=== PATIENT | male | born 1955 | race Caucasian/White ===

== ENCOUNTER 2019-02-08 12:01 | Day surgery (SDC) | payer OTHER, MEDICAID, SELFPAY ==
[2019-02-07 07:17] VITALS: BMI 23.3
[2019-02-08] VITALS (9 sets, daily range): BP systolic 129–157; BP diastolic 87–104; PULSE 83–95; RESP 12–21; TEMP 36.2–36.6; O2SAT 92–96; BMI 23.3
--- NOTE | 2019-02-08 13:04 | PM.PREOP ---
Pre-operative Note Interval Note History & Physical reviewed/Exam performed by Physician: Yes Changes to H&P: No
[2019-02-08] MEDS: LACTATED RINGERS 1,000 ML 42 ML IV ×2 (13:08→15:33)
[2019-02-08] MEDS: CEFAZOLIN 2 GM/100 ML FROZ.PIGGY IV (14:38)
--- NOTE | 2019-02-08 14:56 | SUR.OPER ---
Supine on padded OR bed, head on pillow, arms secured on padded arm boards at <90 degrees abduction, legs uncrossed, safety belt at thigh, tape over blanket over lower legs.
[2019-02-08] MEDS: BUPIVACAINE 0.25% (PF) VIAL 30 ML INJ (15:02)
--- NOTE | 2019-02-08 15:45 | PM.OP.1 ---
Operative Date/Time/Diagnoses Date of procedure: 02/08/19 Time of procedure: 15:45 Pre-op diagnosis: Umbilical hernia Post-op diagnosis: same Procedure & Clinicians Procedure: Open umbilical hernia repair Same procedure as scheduled: Yes Indications: This is a 63-year-old male with a symptomatic umbilical hernia presents for elective repair. Surgeon: Yonathan Nova Click Yes if Unassisted: Yes Anesthesia Type: General Operative Notes Findings: Fat containing umbilical hernia Specimen(s): none sent Estimated Blood Loss (mL): 10 Procedure in detail: Patient was brought to the operating room placed supine on the table. Bilateral lower extremity compression devices were applied. General anesthesia was inducedand they were intubated with an endotracheal tube. They received 2 g of Ancef prior to skin incision. They were prepped and draped in sterile fashion. A time-out was performed ensure the correct patient procedure necessary equipment within the operating room. A curvilinear incision was made inferior to the umbilicus. The subcutaneous tissues were divided. The umbilical hernia was identified and was dissected off the umbilicus and circumferentially. The umbilical hernia sac contained omentum and was not opened. The sac was reduced into the abdomen and the fascia was cleared from above and below circumferentially in order to accommodate the mesh. The fascial defect of 2 cm was closed primarily with figure of 8 PDS suture. A Pro Loop polypropylene mesh was inserted above the fascial defect. It was secured to the fascia using 0 Prolene suture in interrupted fashion. The subcutaneous tissues were reapproximated using 3 0 Vicryl skin closed with 4 0 Monocryl upon by the application of Dermabond and Steri-Strips. Sponge instrument count at the end of the operation was correct. Patient tolerated procedure well was extubated and transferred to postoperative care unit in stable condition. Complications: none Post-operative Condition: stable Disposition: same day surgery
[2019-02-08] MEDS: HYDROMORPHONE 2 MG INJ IV ×4 (15:49→16:06)
[2019-02-08] MEDS: OXYCODONE/ACETAMINOPHEN 5/325 TABLET 1 TAB PO (16:14)
--- NOTE | 2019-02-08 16:19 | SUR.PHASEI ---
Patient A/O x4. Abdomen site clean and dry. Patient tolerating po. Denies nausea. Medicated for c/o pain. Patient states pain is getting more tolerable.
== END 2019-02-08 17:15 | disposition home or self-care (01) ==
PROVIDERS: Family Provider Family Medicine; PCP Family Medicine; Visit Provider Surgery
PROC: (CPT 49585; principal; 2019-02-08 13:15)
DX: K42.9 Umbilical hernia without obstruction or gangrene (principal); J44.9 Chronic obstructive pulmonary disease, unspecified
CPT/HCPCS: 49585; C1781; J0690; J1100; J1170; J2405; J2704; J3010

== ENCOUNTER 2019-05-11 14:56 | Emergency (ER) | payer OTHER, MEDICAID, SELFPAY ==
[2019-05-11 15:01] VITALS: BP 108/72; PULSE 99; RESP 18; TEMP 36.7; O2SAT 99; BMI 24.1
--- NOTE | 2019-05-11 15:28 | DI.RAD.S_ITS ---
PROCEDURE: XR CHEST 1V INDICATIONS: sepsis evaluation TECHNIQUE: One view of the chest was acquired. COMPARISON: [facility], , CHEST 1 VIEW, 07/15/2010, 1:03. [facility], , CHEST 2 VIEW, 06/20/2010, 1:05. FINDINGS: Surgical changes and devices: None. Lungs and pleura: Lungs are unchanged considering reduced inspiratory volume with some mild interstitial prominence previously present. No pleural effusions or pneumothorax. Mediastinum: Mediastinal contours appear normal. Heart size is normal. Bones and chest wall: No suspicious bony lesions. Overlying soft tissues appear unremarkable. IMPRESSION: Mild interstitial prominence within the lung parenchyma, previously present, reduced inspiratory volume accentuates this appearance. No pneumonia found. Dictated by: Neville Chaudhry M.D. on 05/11/2019 at 17:23 Approved by: Neville Chaudhry M.D. on 05/11/2019 at 17:23
[2019-05-11 15:42] LABS: Add Manual Diff / Slide Review NO; Basophils Absolute Auto 100 /uL (0-100); Basophils Percent Auto 0.7 % (0-2); Eosinophils Absolute Auto 400 /uL (0-450); Eosinophils Percent Auto 5.6 % (2-4); Hematocrit 39.9 % (41-53); Hemoglobin 13.4 g/dL (13.5-17.5); Lymphocytes Absolute Auto 2100 /uL (1100-4500); Mean Corpuscular HGB Conc 33.5 % (30-36); Mean Corpuscular Hemoglobin 31.3 PG (26-34); Mean Corpuscular Volume 93.4 fL (80-100); Monocytes Absolute Auto 800 /uL (0-900); Monocytes Percent Auto 10.8 % (3-14); Neutrophils Absolute Auto 4400 /uL (1500-7000); Neutrophils Percent Auto 55.9 % (50-75); Platelet Count 217 X10^3/uL (150-400); Red Blood Cell Count 4.27 X10^6/uL (4.5-5.9); Red Cell Distribution Width 14.1 % (11.6-14.8); White Blood Cell Count 7.8 X10^3/uL (4.5-11.0)
[2019-05-11 15:51] LABS: Alanine Aminotransferase 23 IU/L (<50); Albumin 3.5 g/dL (3.5-5.0); Albumin Globulin Ratio 1.3 (1.0-2.8); Alkaline Phosphatase 73 U/L (38-126); Aspartate Aminotransferase 28 IU/L (17-59); BUN Creatinine Ratio 21.3 (6-22); Bilirubin Total 0.2 mg/dL (0.2-1.3); Blood Urea Nitrogen 17 mg/dL (9-20); Calcium 9.1 mg/dL (8.4-10.2); Carbon Dioxide 29 mmol/L (22-32); Chloride 108 mmol/L (98-107); Estimated Glomerular Filt Rate > 60.0 mL/min (>60); Globulin 2.8 g/dL (1.7-4.1); Glucose 144 mg/dL (80-110); HEMOLYSIS < 15 (0-50); Sodium 142 mmol/L (137-145); Total Protein 6.3 g/dL (6.3-8.2)
[2019-05-11 15:52] LABS: Lactate (Lactic Acid) 2.3 mmol/L (0.7-2.1)
[2019-05-11 16:15] LABS: Procalcitonin < 0.05 ng/mL (<0.5)
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
--- NOTE | 2019-05-11 16:53 | DI.RAD.S_ITS ---
PROCEDURE: XR HAND RT MIN 3V INDICATIONS: s/p foreign body removal TECHNIQUE: 3 views of the hand(s) acquired. COMPARISON: [facility], , HAND 3V LEFT, 12/26/2006, 13:06. FINDINGS: Bones: No fractures or dislocations. Carpal bones are normally aligned. No suspicious bony lesions. Soft tissues: No suspicious soft tissue calcifications. IMPRESSION: Mild arthritic change, no foreign body seen. Dictated by: Neville Chaudhry M.D. on 05/11/2019 at 17:23 Approved by: Neville Chaudhry M.D. on 05/11/2019 at 17:24
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
[2019-05-11 17:00] VITALS: BP 139/68; PULSE 91; RESP 20; O2SAT 96
[2019-05-11] MEDS: SODIUM CHLORIDE 0.9% 1,000 ML 200 ML IV (17:22)
[2019-05-11] MEDS: LIDOCAINE 1% W/EPI 1 ML SUBCUT (17:22)
[2019-05-11 17:37] LABS: Reflexed Lactate in 2 Hours Y
== END 2019-05-11 17:42 | disposition home or self-care (01) ==
PROVIDERS: Emergency Provider Emergency Medicine; Family Provider Family Medicine; PCP Family Medicine
DX: S60.551A Superficial foreign body of right hand, initial encounter (principal); W34.010A Accidental discharge of airgun, initial encounter
CPT/HCPCS: 10120; 36415; 71045; 73130; 80053; 83605; 84145; 85025; 87040; 99284; 99285

== ENCOUNTER → 2019-06-29 09:12 | Outpatient (CLI) | payer OTHER, MEDICAID, SELFPAY ==
[2019-06-29 09:50] LABS: Blood Urea Nitrogen 30 mg/dL (9-20); Estimated Glomerular Filt Rate > 60.0 mL/min (>60)
--- NOTE | 2019-06-29 09:58 | DI.CT.S_ITS ---
PROCEDURE: CT UE RT W CON INDICATIONS: Cutaneous abscess of right hand TECHNIQUE: After the administration of intravenous contrast, 3 mm axial sections acquired of the right hand, with coronal and sagittal reformats. COMPARISON: None. FINDINGS: Image quality: Excellent. Bones: No fracture or dislocation. Soft tissues: No radiopaque foreign bodies. There is focal tissue edema in the volar aspect of the the base of the third finger, measuring 1.0 x 1.4 x 1.7 cm. There is focal thickening the flexor tendon deep to the area. There is subtle peripheral enhancement along the flexor tendon. There is no drainable fluid collection. IMPRESSION: Focal edema and soft tissue thickening around the flexor tendon at the base of the third finger. There is subtle enhancement along the extensor tendon. No radiopaque foreign body. No drainable fluid collection. If clinical symptoms persist, MRI may be helpful for further evaluation. Dictated by: Katheryn Hatfield M.D. on 06/29/2019 at 10:26 Approved by: Katheryn Hatfield M.D. on 06/29/2019 at 10:58
== END ==
PROVIDERS: Family Provider Family Medicine; PCP Family Medicine; Referring Provider Family Medicine; Visit Provider Family Medicine
DX: L02.511 Cutaneous abscess of right hand (principal)
CPT/HCPCS: 36415; 73201; 82565; 84520; Q9967

== ENCOUNTER → 2019-07-12 15:13 | Outpatient (CLI) | payer OTHER, MEDICAID, SELFPAY ==
--- NOTE | 2019-07-12 | DI.MRI.S_ITS ---
PROCEDURE: MR HAND RT WO/W CON INDICATIONS: Cutaneous abscess of right hand TECHNIQUE: Noncontrast coronal T1 spin echo and STIR, sagittal T1 spin echo with fat saturation and STIR, axial T1 spin echo and T2 fast spin echo with fat saturation. After the administration of contrast, axial/sagittal/coronal T1 spin echo with fat saturation through the right hand. COMPARISON: [facility], CR, XR HAND RT MIN 3V, 05/11/2019, 17:00. [facility], CT, CT UE RT W CON, 06/29/2019, 9:53. FINDINGS: Image quality: Motion degraded examination. No discrete fracture or focal osseous destruction however there are several areas of sub-5 mm marrow signal changes present in the capitate, lunate and triquetral seen on orthogonal T1-weighted pulse sequences although questionable overlying cortical loss therefore technically indeterminate for erosions by strict criteria at this time. There is minimal, subtle associated enhancement. bright-dark signal focus is noted, slightly distal to the level of the third MCP joint along the volar aspect, for example image 20/18 raising possibility of punctate metallic foreign body versus postsurgical changes. Please correlate clinically Enhancing ring finger flexor tenosynovitis is noted. No discrete abscess is identified although there is mild adjacent subcutaneous edema. Remaining flexor tendons within normal limits. Mild partially visualized extensor digitorum tenosynovitis Distal radioulnar joint effusion. IMPRESSION: Nonspecific middle finger flexor tenosynovitis, which could be due to infectious etiologies versus inflammatory arthritis. Please correlate with laboratory data. Subtle marrow signal changes present within the carpus raising a possibility of early erosions however these are technically nonspecific by strict criteria. Bright-dark signal change along the palmar aspect of the middle finger at the level of the MCP joint, possibly postsurgical change versus foreign body which is radiographically occult on the comparison study. Please correlate clinically No discrete abscess Dictated by: Estevan Russo M.D. on 07/13/2019 at 8:57 Approved by: Estevan Russo M.D. on 07/13/2019 at 9:13
== END ==
PROVIDERS: Family Provider Family Medicine; PCP Family Medicine; Referring Provider Family Medicine; Visit Provider Family Medicine
DX: L02.511 Cutaneous abscess of right hand (principal); M65.841 Other synovitis and tenosynovitis, right hand; M25.431 Effusion, right wrist
CPT/HCPCS: 73220; A9579

== ENCOUNTER 2019-12-30 17:27 | Observation (INO) | payer OTHER, MEDICAID, SELFPAY ==
--- NOTE | 2019-12-30 | DI.ECHO.S_ITS ---
[facility]---------+ [facility] +---------+ : : [address] : [place] : : : : [id number] : : : : Phone: [phone]+ Echocardiogram Report + + :Name: MARLINE BRYSON Study Date: 01/01/2020 Height: 71 in : :[facility] Weight: 181 lb : : Gender: Male BSA: 2.0 m2 : :: 1955 Age: 64 yrs BP: 148/102 mmHg: :Reason For Study: CVA, AFIB : : Performed By: Vadim Rajput : :Referring: RD ALCANTARA : + + Interpretation Summary Normal sinus rhythm. Normal LV size, wall thickness; normal wall motion and LV systolic function. EF is 60-65%. Normal chamber sizes. No significant valvular abnormalities. No evidence of PFO based on bubble study. No prior study available for comparison. Procedure: A two-dimensional transthoracic echocardiogram with color flow and Doppler was performed. The study quality was technically adequate. There is no prior echocardiogram noted for this patient. A saline contrast injection was performed to assess for cardiac shunting. The suprasternal notch views were difficult to obtain and are suboptimal in quality. The patient was in normal sinus rhythm during the exam. Left Ventricle: The left ventricle is normal in size. There is normal left ventricular wall thickness. The ejection fraction is estimated to be 60-65%. There are no focal wall motion abnormalities. Right Ventricle: The right ventricle is normal in size and function. Atria: Both atria are normal in size. Injection of contrast documented no interatrial shunt. Mitral Valve: The mitral valve is normal in structure and function. There is trace mitral regurgitation. Aortic Valve: The aortic valve is trileaflet. The aortic valve opens well. No aortic regurgitation is present. Tricuspid Valve: The tricuspid valve is normal in structure and function. No tricuspid regurgitation. Pulmonary artery pressures cannot be estimated because of the lack of a measurable TR jet velocity. Pulmonic Valve: The pulmonic valve is not well visualized. There is trace pulmonic regurgitation. Great Vessels: The aortic root is normal size. The ascending aorta is at the upper limits of normal in size. The pulmonary artery is normal size. The IVC is of normal diameter and collapses greater than 50% with a sniff. This suggests a low right atrial pressure of 3 mm Hg. Pericardium/ Pleura There is no pericardial effusion. There is no pleural effusion. MMode/2D Measurements & Calculations LVIDd: 4.6 cm LVOT diam: 2.2 cm LVIDs: 3.2 cm Ao root diam: 3.5 cm FS: 30.0 % asc Aorta Diam: 3.5 cm EPSS: 1.1 cm IVSd: 1.1 cm LVPWd: 1.2 cm LV guerin. diameter/BSA (cm/m^2): 2.3 LV sys. diameter/BSA (cm/m^2): 1.6 LA dimension: 3.4 cm RA long axis: 3.9 cm LA A2 area: 19.6 cm2 RA area: 15.1 cm2 LA A4 area: 17.8 cm2 RA vol: 50.3 ml LA length (vol): 4.8 cm RA : 24.9 ml/m2 LA vol: 61.6 ml IVC diam: 1.2 cm LA vol index: 30.5 ml/m2 Doppler Measurements & Calculations Ao V2 max: 113.1 cm/sec LVOT Max Matt: 89.1 cm/sec Ao V2 mean: 77.8 cm/sec LV V1 max P.2 mmHg Ao max P.1 mmHg LV V1 VTI: 16.1 cm Ao mean P.6 mmHg ALLISON(I,D): 3.6 cm2 Ao V2 VTI: 17.5 cm ALLISON(V,D): 3.1 cm2 sev ratio: 0.92 ALLISON indexed to BSA (cm^2/m^2): 1.8 MV E max matt: 42.0 cm/sec PA V2 max: 88.6 cm/sec MV A max matt: 93.2 cm/sec PA V2 mean: 69.1 cm/sec MV E/A: 0.45 PA mean P.0 mmHg Med Peak E' Matt: 4.3 cm/sec PA pr(Accel): 66.2 mmHg E/E' med: 9.7 Lat Peak E' Matt: 3.1 cm/sec E/E' lat: 13.8 E/e' average: 11.7 MV dec time: 0.12 sec SV(LVOT): 63.1 ml Electronically signed by: Lupe Harrison M.D. on Reading Physician:01/01/2020 05:54 PM
--- NOTE | 2019-12-30 17:36 | ED.NEUROSD ---
HPI - Neuro Symptoms/Deficit General Chief Complaint: Neuro Symptoms/Deficit Stated Complaint: stroke sx Time Seen by Provider: 12/30/19 17:28 Source: patient and family Mode of arrival: Ambulatory Limitations: no limitations History of Present Illness HPI Narrative: 64-year-old male daily smoker with history of hyperlipidemia and hypertension presents with a chief complaint of stroke-like symptoms for the past 2 weeks. He states that he thinks he had a stroke 2 weeks ago because since then he has been having trouble with vision in his left eye, trouble with speech as well as weakness of left arm and left leg as well as numbness and tingling. He denies any trauma nor any history of the same. He is not activated as a code stroke as he is outside of any interventional window. Onset (ago): week(s) Timing confirmed by: family member Location: speech, dysarthria, left arm, left leg and ataxia History of same: No Severity: moderate Quality: weak, numb, tingling and constant Relieving factors: none Exacerbating factors: none On Anticoagulants: No Associated symptoms: denies other symptoms Treatments Prior to Arrival: none Related Data Home Medications Medication Instructions Recorded Confirmed tamsulosin [Flomax] 0.4 mg PO DAILY #0 07/18/10 05/11/19 albuterol sulfate 90 mcg/actuation 2 puff INHALATION Q4H PRN 02/06/19 05/11/19 aerosol inhaler amitriptyline 100 mg tablet 100 mg PO BEDTIME 02/06/19 05/11/19 amlodipine 5 mg tablet 5 mg PO DAILY 02/06/19 05/11/19 lisinopril 10 mg tablet 10 mg PO DAILY 02/06/19 02/20/19 olanzapine 10 mg tablet 5 mg PO BID 02/06/19 05/11/19 tacrolimus 0.1 % topical ointment 1 applictn TOP BID 02/06/19 02/20/19 aspirin [Aspir-Low] 81 mg PO DAILY 02/08/19 02/20/19 adalimumab [Humira(CF) Pen] mg SUBCUT 05/11/19 albuterol sulfate 2.5 mg INHALATION Q4H PRN 05/11/19 05/11/19 divalproex 1,000 mg PO BID 05/11/19 05/11/19 duloxetine 60 mg PO DAILY 05/11/19 omeprazole 20 mg PO DAILY PRN 05/11/19 05/11/19 oxycodone-acetaminophen [Percocet] 1 tab PO Q6H PRN MDD 6 05/11/19 05/11/19 tiotropium bromide [Spiriva with 1 cap INHALATION DAILY 05/11/19 05/11/19 HandiHaler] urea 1 applic TOPICAL DIRECTED 05/11/19 05/11/19 Previous Rx's Medication Instructions Recorded acetaminophen [Tylenol] 650 mg PO QID PRN #60 cap 02/08/19 tramadol 50 mg PO TID PRN #30 tab 02/08/19 Allergies Allergy/AdvReac Type Severity Reaction Status Date / Time bupropion Allergy Unknown Verified 12/30/19 17:46 hydrocodone AdvReac Verified 12/30/19 17:46 Review of Systems Constitutional Constitutional: Denies chills, Denies fatigue, Denies fever(s), Denies frequent falls, Denies lethargy and Reports weakness Eyes Eyes: Reports blurry vision, Denies change in vision, Denies eye discharge, Denies irritation and Denies loss of vision ENT Ears, Nose, Mouth, and Throat: Denies change in voice, Denies dizziness, Denies neck pain, Reports disequilibrium, Denies sore throat and Denies throat swelling Cardiovascular Cardiovascular: Denies chest pain, Denies irregular heart rhythm, Denies lightheadedness, Denies palpitations, Denies dyspnea, Denies dyspnea on exertion and Denies orthopnea Respiratory Respiratory: Denies cough, Denies dyspnea, Denies dyspnea on exertion and Denies wheezing Gastrointestinal Gastrointestinal: Denies abdominal pain, Denies change in bowel habits, Denies diarrhea, Denies nausea and Denies vomiting Musculoskeletal Musculoskeletal: Denies neck pain and Reports numbness Integumentary/Breasts Skin/Breast: Denies pruritus, Denies erythema, Denies rash and Denies wounds Neurologic Neurologic: Denies behavioral changes, Denies confusion, Denies dizziness, Denies frequent falls, Denies loss of vision, Reports numbness, Reports sensory deficit, Reports disequilibrium and Reports weakness Psychiatric Psychiatric: Denies anxiety, Denies behavioral changes, Denies confusion, Denies depression, Denies homicidal ideation and Denies suicidal ideation Endocrine Endocrine: Denies fatigue, Denies flushing and Denies palpitations Hematologic/Lymphatic Hematologic/Lymphatic: Denies easy bruising Allergic/Immunologic Allergic/Immunologic: Denies urticaria, Denies throat swelling and Denies wheezing Patient History Medical History Anxiety (Acute) Arthritis (Acute) Asthma (Acute) Bipolar disorder (Acute) BPH (benign prostatic hyperplasia) (Acute) COPD (chronic obstructive pulmonary disease) (Acute) Current every day smoker (Acute) Depression (Acute) GERD (gastroesophageal reflux disease) (Acute) History of atrial fibrillation (Acute) HTN (hypertension) (Acute) Hx of appendicitis (Acute) Methamphetamine abuse (Acute) Psoriasis (Acute) Traumatic brain injury (Acute) Surgical History History of back surgery (Acute ~2008) Hx of abdominal surgery (Acute) Hx of appendectomy (Acute) Hx of cholecystectomy (Acute) Hx of hernia repair (Acute) Family History Mother Hypertension Father Hypertension Social History marital status: unmarried,single household members: none occupational status: previously employed Smoking Status: Current every day smoker alcohol intake: never substance use type: does not use Smoking Status: Current every day smoker Substance Use Type: former substance user Exam Narrative Exam Narrative: GENERAL: [64] year old patient appears stated age. Well-nourished, well-developed patient, in mild distress. Anxious, walks in under his own power but with an unsteady gait HEAD: Atraumatic. Normocephalic. EYES: Pupils equal round and reactive. Extraocular motions intact. No scleral icterus. No injection or drainage. ENT: Nose without bleeding, purulent drainage. Throat without erythema, tonsillar hypertrophy or exudate. Airway patent. NECK: Trachea midline. Non tender CARDIOVASCULAR: Regular rate and rhythm without murmurs, gallops, or rubs. RESPIRATORY: Clear to auscultation. Breath sounds equal bilaterally. No wheezes, rales, or rhonchi. GASTROINTESTINAL: Abdomen soft, non-tender, nondistended. EXTREMITIES: No edema or joint tenderness. BACK: Nontender without deformity or crepitance. No flank tenderness. NEURO: AOx3. SKIN: No rash or erythema of visible areas Initial Vital Signs Initial Vital Signs: Vital Signs Temperature 97.9 F 12/30/19 17:41 Pulse Rate 94 H 12/30/19 17:41 Respiratory Rate 18 12/30/19 17:41 Blood Pressure 147/91 H 12/30/19 17:41 Pulse Oximetry 97 12/30/19 17:41 Scores NIH Stroke Scale Level of Conciousness: Alert, keenly responsive Ask month/age: Answers neither question correctly, aphasic, stuporous, coma Open/close eyes, close hand: Performs both tasks correctly Best gaze horizontal: Normal Visual plascencia: Partial hemianopia Facial palsy: Normal symetrical movement Left arm drift: Drifts down, not to bed Right arm drift: No drift for full 10 sec Left leg drift: Drifts down, not to bed Right leg drift: No drift for full 5 sec Limb ataxia: Present in one limb Sensory on face/arms/legs: Mild to moderate sensory loss, can tell touch Best language: Mild to moderate, slurs some words Dysarthria: Mild to mod,some slurring Extinction or inattention: No abnormality Total NIH Stroke scale score: 9 Course Course Course Narrative: signed out to Dr. Mann for final disposition Orders Ordered: ED Orders 12/30/19 17:36 CT head/brain wo con Stat EKG-12 Lead Stat 12/30/19 17:52 Basic Metabolic Panel Stat Complete Blood Count AUTO DIFF Stat Troponin & CK Cardiac Panel Stat 12/30/19 18:12 COVID19 -ED/INPAT/OR/L&D Stat Sodium Chloride (Normal Saline 0.9%) 1,000 mls @ 125 mls/hr IV CONT KASEY Last Admin: 12/30/19 17:59 Dose: 125 mls/hr Documented by: JATIN Vital Signs Vital signs: Vital Signs - 8 hr 12/30/19 17:41 Temperature 97.9 F Pulse Rate 94 H Respiratory Rate 18 Blood Pressure 147/91 H Pulse Oximetry 97 MDM - Neuro Symptoms/Deficit Lab Data Result diagrams: 12/30/19 17:52 12/30/19 17:52 Labs: Lab Results 12/30/19 12/30/19 Range/Units 17:52 17:52 WBC 9.1 (4.5-11.0) X10^3/uL RBC 4.64 (4.5-5.9) X10^6/uL Hgb 14.7 (13.5-17.5) g/dL Hct 43.7 (41-53) % MCV 94.0 (80-100) fL MCH 31.6 (26-34) PG MCHC 33.6 (30-36) % RDW 14.2 (11.6-14.8) % Plt Count 227 (150-400) X10^3/uL Neut % (Auto) 56.6 (50-75) % Lymph % (Auto) 30.2 (25-40) % Lander % (Auto) 8.8 (3-14) % Eos % (Auto) 3.4 (2-4) % Baso % (Auto) 1.0 (0-2) % Neut # (Auto) 5100 (8908-0947) /uL Lymph # (Auto) 2700 (8665-4172) /uL Lander # (Auto) 800 (0-900) /uL Eos # (Auto) 300 (0-450) /uL Baso # (Auto) 100 (0-100) /uL Sodium 138 (137-145) mmol/L Potassium 4.5 (3.4-5.1) mmol/L Chloride 105 (98-107) mmol/L Carbon Dioxide 30 (22-32) mmol/L BUN 18 (9-20) mg/dL Creatinine 0.74 (0.66-1.25) mg/dL Estimated GFR > 60.0 (>60) mL/min BUN/Creatinine Ratio 24.3 H (6-22) Glucose 97 (80-110) mg/dL Calcium 9.1 (8.4-10.2) mg/dL Total Creatine Kinase 93 (55-170) U/L CK-MB (CK-2) TNP CK-MB (CK-2) Rel Index TNP Troponin I < 0.012 (0.01-0.034) ng/mL Imaging Data CT scan - head: Radiologist's Impression: Aris Torres 64 M [address] [address] [address] Scan Report Signed Patient: Aris TorresMR#: [id number] : 8Acct:[id number] Age/Sex: 64 / MDate of Service: 12/30/19 Loc: ED Accession Number: [id number] Procedure: CT head/brain wo con Ordering Provider: Tk Hagen D.O. PROCEDURE: CT HEAD/BRAIN WO CON INDICATIONS: left sided stroke symptoms, no TPA outside window TECHNIQUE: Noncontrast 4.5 mm thick angled axial sections acquired from the foramen magnum to the vertex, with coronal and sagittal reformats. For radiation dose reduction, the following was used: automated exposure control, adjustment of mA and/or kV according to patient size. COMPARISON: [facility], CT, HEAD WITHOUT CONTRAST, 07/15/2010, 0:23. FINDINGS: Image quality: Excellent. CSF spaces: Basal cisterns are patent. No extra-axial fluid collections. Ventricles are normal in size and shape. Brain: No intracranial hemorrhage, mass, or mass effect. Cast-white matter interface appears grossly preserved. There is indistinct hypodensity in the right temporal lobe within the middle cranial fossa likely reflecting beam hardening artifact. Skull and face: Calvarium and visualized facial bones are intact, without suspicious lesions. Sinuses: Visualized sinuses and mastoids are clear. IMPRESSION: 1. No definite acute intracranial abnormality. 2. Indistinct hypodensity in the right temporal lobe within the middle cranial fossa likely represents beam hardening artifact. However, if clinical concern persists, consider further evaluation with MRI. Dictated by: Merritt Abdalla M.D. on 12/30/2019 at 17:08 Approved by: Merritt Abdalla M.D. on 12/30/2019 at 17:12 Stroke Core Measures Exclusion Criteria TPA in CVA: Symptom Onset >3 or 4.5 Hours Discharge Plan Departure Patient Disposition: Admitted as Observation Clinical Impression: Cerebrovascular accident Prescriptions: No Action tamsulosin [Flomax] 0.4 MG capsule,extended release 24hr 0.4 mg PO DAILY Qty: 0 RF: 0 amlodipine 5 mg tablet 5 mg PO DAILY RF: 0 albuterol sulfate [Proventil HFA] 90 mcg/actuation HFA aerosol inhaler 2 puff INHALATION Q4H PRN (Reason: Shortness Of Breath) RF: 0 olanzapine [Zyprexa] 10 mg tablet 5 mg PO BID RF: 0 tacrolimus 0.1 % ointment 1 applictn TOP BID RF: 0 amitriptyline 100 mg tablet 100 mg PO BEDTIME RF: 0 lisinopril 10 mg tablet 10 mg PO DAILY RF: 0 aspirin [Aspir-Low] 81 mg Tablet,Delayed Release (Dr/Ec) 81 mg PO DAILY RF: 0 tramadol 50 mg tablet 50 mg PO TID PRN (Reason: pain) Qty: 30 RF: 0 acetaminophen [Tylenol] 325 mg capsule 650 mg PO QID PRN (Reason: pain) Qty: 60 RF: 0 albuterol sulfate 2.5 mg /3 mL (0.083 %) solution for nebulization 2.5 mg inhalation Q4H PRN (Reason: Shortness Of Breath) RF: 0 urea 40 % cream 1 applic TOPICAL DIRECTED RF: 0 divalproex 500 mg tablet extended release 24 hr 1,000 mg PO BID RF: 0 omeprazole 20 mg capsule,delayed release(DR/EC) 20 mg PO DAILY PRN (Reason: Acid Reflux) RF: 0 Spiriva with HandiHaler 18 mcg capsule, w/inhalation device 1 cap INHALATION DAILY RF: 0 duloxetine 60 mg capsule,delayed release(DR/EC) 60 mg PO DAILY RF: 0 Humira(CF) Pen 40 mg/0.4 mL pen injector kit SUBCUT RF: 0 oxycodone-acetaminophen [Percocet] 5-325 mg tablet 1 tab PO Q6H MDD 6 PRN (Reason: pain) RF: 0 Referrals: Kailee Dominguez MD [Primary Care Provider] -
[2019-12-30 17:41] VITALS: BP 147/91; PULSE 94; RESP 18; TEMP 36.6; O2SAT 97; BMI 25.2
[2019-12-30 17:57] LABS: Add Manual Diff / Slide Review NO; Basophils Absolute Auto 100 /uL (0-100); Eosinophils Absolute Auto 300 /uL (0-450); Eosinophils Percent Auto 3.4 % (2-4); Hematocrit 43.7 % (41-53); Hemoglobin 14.7 g/dL (13.5-17.5); Lymphocytes Absolute Auto 2700 /uL (1100-4500); Lymphocytes Percent Auto 30.2 % (25-40); Mean Corpuscular HGB Conc 33.6 % (30-36); Mean Corpuscular Hemoglobin 31.6 PG (26-34); Monocytes Absolute Auto 800 /uL (0-900); Monocytes Percent Auto 8.8 % (3-14); Neutrophils Absolute Auto 5100 /uL (1500-7000); Neutrophils Percent Auto 56.6 % (50-75); Platelet Count 227 X10^3/uL (150-400); Red Blood Cell Count 4.64 X10^6/uL (4.5-5.9); Red Cell Distribution Width 14.2 % (11.6-14.8); White Blood Cell Count 9.1 X10^3/uL (4.5-11.0)
[2019-12-30] MEDS: SODIUM CHLORIDE 0.9% 1,000 ML 125 ML IV (17:59)
[2019-12-30 18:00] VITALS: BP 169/93; PULSE 88; RESP 16; O2SAT 96
[2019-12-30 18:08] LABS: BUN Creatinine Ratio 24.3 (6-22); Blood Urea Nitrogen 18 mg/dL (9-20); Calcium 9.1 mg/dL (8.4-10.2); Carbon Dioxide 30 mmol/L (22-32); Chloride 105 mmol/L (98-107); Creatine Kinase 93 U/L (55-170); Estimated Glomerular Filt Rate > 60.0 mL/min (>60); Glucose 97 mg/dL (80-110); HEMOLYSIS 27 (0-50); Potassium 4.5 mmol/L (3.4-5.1); Sodium 138 mmol/L (137-145)
[2019-12-30 18:20] LABS: Troponin I < 0.012 ng/mL (0.01-0.034)
[2019-12-30 18:29] LABS: COVID19 -Nasal RAPID Negative (Negative)
[2019-12-30 18:30] VITALS: BP 151/97; PULSE 84; RESP 17; O2SAT 96
[2019-12-30 18:38] VITALS: PULSE 90; RESP 20; O2SAT 97
[2019-12-30] MEDS: ASPIRIN 81 MG CHEW TAB 324 MG PO (18:42)
[2019-12-30 19:00] VITALS: BP 170/95; PULSE 86; RESP 22; O2SAT 96
[2019-12-30 19:41] VITALS: BMI 25.2
[2019-12-30 19:50] VITALS: BP 148/102; PULSE 86; RESP 19; TEMP 36.6; O2SAT 99
--- NOTE | 2019-12-30 20:37 | PC.NURSE ---
Addendum entered by Krystyna Malloy R.N. 12/30/19 22:50: Noted pt's 02 levels on room air with sleep 90% consistently. Placed pt on 02 @ 2L per nc and level increases to 93%. Continuous monitor in place. Original Note: Pt to room 214 from E.R. accompanied by Sanna who pt identifies as girlfriend. Pt admits to chronic back pain 10/29 with goal of 08/29. States takes aleve and ibuprofen to manage @ home. Pt reports h/o falls and was educated on using call light to summon staff when needing/desiring out of bed for any reason. Walker provided. Pt states Sanna will take wallet and other valuables home tonight. Slight weakness and diminished sensation to left arm and left leg. Per ETruRTru RNNessa, pt passed swallow eval in E.R. Pt admits to double vision left eye, but admits to ability to see, read, with intact peripheral vision. Awaiting orders per hospitalist. Pt was oriented to call light.
[2019-12-30 21:05] LABS: Cholesterol 145 mg/dL (140-199); HDL Cholesterol 38 mg/dL (40-60); LDL Cholesterol Calculated 55 mg/dL (<100); Triglycerides 259 mg/dL (35-150)
[2019-12-30 21:07] LABS: Hemoglobin A1C% w Est Avg Glu 5.8 % (4.0-6.0)
[2019-12-31] VITALS (11 sets, daily range): BP systolic 128–155; BP diastolic 89–101; PULSE 79–99; RESP 16–20; TEMP 36.3–36.7; O2SAT 92–96
[2019-12-31] MEDS: SODIUM CHLORIDE 0.9% 1,000 ML 75 ML IV (01:53)
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
[2019-12-31 06:09] LABS: Alanine Aminotransferase 20 IU/L (<50); Albumin 3.4 g/dL (3.5-5.0); Albumin Globulin Ratio 1.3 (1.0-2.8); Alkaline Phosphatase 55 U/L (38-126); Aspartate Aminotransferase 20 IU/L (17-59); BUN Creatinine Ratio 24.7 (6-22); Bilirubin Total 0.2 mg/dL (0.2-1.3); Blood Urea Nitrogen 22 mg/dL (9-20); Carbon Dioxide 33 mmol/L (22-32); Chloride 104 mmol/L (98-107); Estimated Glomerular Filt Rate > 60.0 mL/min (>60); Globulin 2.6 g/dL (1.7-4.1); Glucose 93 mg/dL (80-110); HEMOLYSIS 17 (0-50); Potassium 4.8 mmol/L (3.4-5.1); Sodium 140 mmol/L (137-145)
[2019-12-31 06:34] LABS: Thyroid Stimulating Hormone 0.942 uIU/mL (0.47-4.68)
[2019-12-31] MEDS: ALBUTEROL HFA 200 PUFF/18 GM INH (COVID POS/VENT PTS) INH ×2 (08:01→14:13)
[2019-12-31] MEDS: TIOTROPIUM BROMIDE 18 MCG INHALER INH (08:01)
--- NOTE | 2019-12-31 08:29 | CM.DANOTE ---
Addendum entered by Staci Garsia R.N. 12/31/19 10:35: Spoke to Cris at [facility]. She is in for [facility]. Updated her on referral, she is new, and thinks that they take his insurance. Let her know that this egg caser will fax over referral. Let her know that MRI is expected for tomorrow, and that he has not yet worked with P.T, or OT, but will fax over those notes when available, as well. Phone number of [facility] is [phone]. Fax number is: [phone]. Left a message with [facility] as well. Their phone number is: [phone]. Fax number is: [phone]. Will fax over referral to [facility] as well. In message stated that P.T. is pending, and O.T, as well as MRI. Addendum entered by Staci Garsia R.N. 12/31/19 10:27: Met with patient during team rounds. Plan is for patient to have an echo today. MRI is not available today, so plan is for tomorrow. He has not yet worked with P.T, but Dr. Escoto indicated that he may be a good candidate for inpatient rehab. Will follow up with [facility]. Will need P.T and O.T. notes to send them as well, and will need to see if they accept his insurance. Original Note: DCP: Case received, EMR reviewed and met with patient. Introduced self and role. Was able to obtain information from patient regarding his baseline activity status prior to hospitalization. DCP assessment completed with information currently available. Patient is a 64 year old male who admitted yesterday afternoon to the care of the hospitalist team. PCP: Dr. Dominguez at [facility] in [facility]. Payer: confirmed: [employer] /[employer]. Patient came to the hospital via private vehicle secondary to symptoms that had started approximately 2 weeks ago. Patient had been having symptoms of weakness, numbness, as well as some left eye visual disturbances. He had also been having head aches. Patient will be having MRI today to check for CVA. Met with patient in his room. He is alert and oriented. He resides in [place], is retired, and lives alone. He has a significant other named Sanna Gutierrez. Patient does not drive, but he indicated that she takes him to appointments, shopping, etc. He gets his medical care at the [facility] in [facility]. Patient uses a cane at baseline, and is independent otherwise. P: DCP to follow for any needs or resources. He will be having MRI today, and working with P.T. Will check in with P.T. for any recommendations. Staci Garsia RN/Highway Maintenance Supervisor
[2019-12-31] MEDS: ASPIRIN EC 81 MG TABLET PO (09:38)
[2019-12-31] MEDS: DULOXETINE 30 MG CAPSULE 60 MG PO (09:38)
[2019-12-31] MEDS: ENOXAPARIN 40 MG/0.4 ML SYRINGE SUBCUT (09:39)
[2019-12-31] MEDS: TAMSULOSIN 0.4 MG CAPSULE 0.8 MG PO (09:39)
[2019-12-31] MEDS: OLANZapine 2.5 MG TABLET 5 MG PO ×2 (10:01→20:55)
[2019-12-31] MEDS: INFLUENZA VACCINE 0.5 ML SYRINGE IM (10:01)
[2019-12-31] MEDS: DIVALPROEX ER 250 MG TAB 1500 MG PO ×2 (10:16→20:53)
--- NOTE | 2019-12-31 12:04 | CM.DPC ---
DCP Cont: Noticed on H&P, that patient has history of bipolar and amphetamine abuse, acute. Spoke to patient, and he mentioned that he stopped using amphetamines approximately 3 months ago, and denied having any withdrawals. He did indicate that he has chronic back pain, and uses CBD for discomfort. Patient is retired, and used to work with [employer]. Patient stated that he injured his back after he retired. P: DCP to continue to follow. Have sent referrals to [facility], as well as [facility]. P.T. to work with patient today, and MRI for tomorrow. Staci Garsia RN/Skein Yarn Dyer Helper
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
[2019-12-31] MEDS: lisinopriL 10 MG TABLET PO (12:51)
[2019-12-31] MEDS: CLOPIDOGREL 75 MG TABLET PO (12:51)
[2019-12-31] MEDS: NICOTINE 21 MG PATCH TOP (12:51)
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
[2019-12-31] MEDS: methocarbamoL 500 MG TABLET PO (20:54)
[2019-12-31] MEDS: AMITRIPTYLINE 25 MG TABLET 100 MG PO (20:54)
[2019-12-31] MEDS: ATORVASTATIN 20 MG TABLET PO (20:55)
--- NOTE | 2019-12-31 21:33 | PC.NURSE ---
Evening note: Jack is resting in bed tonight, reporting chronic back pain 08/29. I offered him tylenol, he said he can't take that because it is awful on my stomach. He told me he takes Aleve at home. I notified Sandro BARBOSA of patient request for naproxen, he said he was hesitant to order an NSAID, wanting me to give patient one-time dose of methocarbamol & see how it works before resorting to naproxen. Methocarbamol given with other HS meds. VS stable, BP hypertensive but better this evening at 145/97. Pt refused shower after BR set up for him to shower, saying I want to wait until morning. I told him he could shower in the middle of the night if he wanted to. Girlfriend at bedside visiting, patient appears to be in better spirits tonight.
--- NOTE | 2020-01-01 | DI.MRI.S_ITS ---
PROCEDURE: MR STROKE Pre- and post-contrast brain MRI, non-contrast brain MR angiogram, pre- and postcontrast neck MR angiogram INDICATIONS: CVA TECHNIQUE: Brain: Noncontrast axial T1 spin echo, axial T2 fast spin echo, sagittal and axial FLAIR, coronal T2 fast spin echo, axial gradient echo, axial diffusion and ADC through the brain. After the administration of contrast, axial 3D VIBE of the cranial vasculature and brain. Brain MRA: Non-contrast 3-D time of flight MR angiogram, with multiple exylhsp-unftkxjof-obbsgkuhfo (MIP) reformats performed. Neck MRA: Axial and sagittal TruFISP through the neck. Coronal dynamic MR angiogram during administration of contrast in the arterial and venous phases, with 3-dimenstional qwvwglg-oxpuikjgt-wyyfxdhong (MIP) reformats constructed from subtraction images. COMPARISON: [facility], MR, STROKE PROTOCOL (PNL), 11/19/2010, 17:03. [facility], CT, HEAD WITHOUT CONTRAST, 07/15/2010, 0:23. [facility], CT, CT HEAD/BRAIN WO CON, 12/30/2019, 18:00. FINDINGS: Image quality: Diagnostic, with note made of motion artifact. BRAIN: CSF spaces: Ventricles are normal in size and shape. Basal cisterns are patent. No extra-axial fluid collections. Brain: No intracranial bleeds or mass effects. Cast-white matter interface is normal. Diffusion weighted images show no acute ischemic insults. Brain parenchymal volume loss is seen. Chronic small vessel ischemic changes can be seen. Brainstem appears normal. Normal intravascular flow voids are present. No abnormal intracranial enhancement. Skull and face: Calvarial marrow signal is normal. Orbits appear normal. Sinuses: Sinuses and mastoids are clear. There is moderate leftward nasal septal deviation. BRAIN MR ANGIOGRAM: Anterior circulation: Intracranial internal carotid arteries are normal in size and enhancement. The flow within the paired anterior cerebral arteries is normal and symmetric. There is a diminutive right A1 segment, with a corresponding robust left A1 segment. This is considered to be a normal developmental variant of the [place], of typically no clinical consequence. The flow within the middle cerebral arteries is otherwise normal and symmetric. The anterior communicating artery is seen. No stenoses, occlusions, or aneurysms. Posterior circulation: The visualized portions of the vertebral arteries demonstrate normal caliber, and join to form a normal appearing basilar artery. There is a prominent right posterior communicating artery seen, with an accompanying diminutive right P1 segment. This is attributed to a type origin of the right posterior cerebral artery, which is considered to be a normal developmental variant of typically no clinical consequence. The flow within the posterior cerebral arteries is normal and symmetric. No stenoses, occlusions, or aneurysms. NECK MR ANGIOGRAM: Carotids: Incidental note is made of a common origin of the right brachiocephalic artery and the left common carotid artery (bovine type arch). This is considered to be a developmental variant of no clinical consequence. The The origins of the common carotid arteries appear patent. The calibers and courses of both common carotid arteries are normal. The bifurcation regions appear normal bilaterally. The internal carotid arteries demonstrate normal course and caliber. Posterior circulation: The origins of the vertebral arteries appear patent. More superior portions of both vertebral arteries demonstrate normal course and caliber, and join to form a normal appearing basilar artery. Miscellaneous: Subclavian arteries appear patent. Pre-contrast images through the neck show no soft tissue abnormalities. IMPRESSION: BRAIN MRI: No findings of acute or subacute infarction can be seen. Note is made of age-appropriate brain parenchymal volume loss and chronic small vessel ischemic changes. No masses or abnormal enhancement can be seen. BRAIN MR ANGIOGRAM: No significant intracranial arterial abnormality is seen. Xdohjt-xo-Irizph developmental anomalies are incidentally noted. NECK MR ANGIOGRAM: Within the arteries of the neck, no hemodynamically significant stenosis can be seen. Bovine type aortic branching pattern incidentally noted. Dictated by: Reed Wynn M.D. on 01/01/2020 at 7:45 Approved by: Reed Wynn M.D. on 01/01/2020 at 7:50
--- NOTE | 2020-01-01 00:51 | PC.NURSE ---
2330 Patient is alert and oriented. NIH = 6 as has drift and ataxia in left UE/LE, decreased sensation to left side of body, blurred vision in left eye along with diplopia and sometimes triple vision. Breath sounds coarse throughout and states he feels chronically SOB both at rest and with exertion; has hx of COPD. RA sat is 94% and is on continuous oximetry. HRR with elevated BP of 155/92. Telemetry reading was SR w/BBB. Denies nausea. BT present and abdomen is soft; reports BM 12/30. Denies dysuria, frequency or urgency with urination. Able to move self in bed but when out of bed is assisted and uses cane due to weakness. Complains of chronic back pain rating severity as 5-6/10 but declines pain medication. Agreeable to having bilateral SCD's placed. Fall risk score is high and bed alarm is activated.
[2020-01-01 05:02] VITALS: BP 142/97; PULSE 81; RESP 16; TEMP 37.4; O2SAT 92
[2020-01-01] MEDS: TIOTROPIUM BROMIDE 18 MCG INHALER INH (07:43)
[2020-01-01] MEDS: ALBUTEROL HFA 200 PUFF/18 GM INH (COVID POS/VENT PTS) INH (07:44)
[2020-01-01] MEDS: SODIUM CHLORIDE 0.9% FLUSH 10 ML IV ×2 (07:46→22:02)
[2020-01-01 07:47] VITALS: BP 147/106; PULSE 90; RESP 18; TEMP 36.5; O2SAT 93
--- NOTE | 2020-01-01 07:55 | PC.NURSE ---
Patient picked up for MRI this morning. Upon my arrival patient was sleeping, awakened easily, states he is feeling tired today and didn't sleep very well last night. Given his inhalers this morning per his request prior to test. Up to bathroom with SB assistance and cane, tolerating well. Will continue with plan of care.
--- NOTE | 2020-01-01 08:37 | CM.DPC ---
Addendum entered by Kaleigh Wagner 01/01/20 11:00: Spoke with Macarena at [facility] she reports that based on the information she has received patient does not qualify for inpatient acute rehabilitation. Met with patient this AM in rounds. Patient reports that he has improved significantly over the last 24hrs. Patient wants to go home. Patient resides alone but does have significant other that can assist if needed. P: As of now anticipate home when medically stable with close outpatient follow up. KJS Original Note: DCP/continued: Reviewed chart. Patient is a 64yr old male admitted to [facility] for stroke. Per previous CM notes, acute inpatient rehabilitation being explored for d/c planning. LEDGE MAN placed call to Macarena at [facility], spoke with Macarena. She reports that they are reviewing the information that was sent over the weekend. LEDGE MAN faxed updated progress note and PT note. OT and ST are currently pending. Attempted to meet with patient but he is currently off the floor for MRI. Spoke with Ana from therapy and she reports that when she discussed plan with patient that he wanted to go home? Asked therapies to see patient this AM and provide LEDGE MAN with update. P: Pending. [facility] reviewing for acute rehab and all 3 therapies plan to see patient this AM and provide updated recommendations. LU Becker
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
[2020-01-01] MEDS: ENOXAPARIN 40 MG/0.4 ML SYRINGE SUBCUT (10:01)
[2020-01-01] MEDS: RIVAROXABAN 10 MG TABLET 15 MG PO (10:01)
[2020-01-01] MEDS: NICOTINE 21 MG PATCH TOP (10:01)
[2020-01-01] MEDS: ASPIRIN EC 81 MG TABLET PO (10:02)
[2020-01-01] MEDS: DIVALPROEX ER 250 MG TAB 1500 MG PO ×2 (10:02→22:02)
[2020-01-01] MEDS: lisinopriL 10 MG TABLET PO (10:25)
[2020-01-01] MEDS: DULOXETINE 30 MG CAPSULE 60 MG PO (10:25)
[2020-01-01] MEDS: OLANZapine 2.5 MG TABLET 5 MG PO ×2 (10:25→22:02)
[2020-01-01] MEDS: TAMSULOSIN 0.4 MG CAPSULE 0.8 MG PO (10:25)
[2020-01-01 13:30] VITALS: BP 131/88; PULSE 100; RESP 18; TEMP 36.7; O2SAT 93
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
[2020-01-01 16:30] VITALS: BP 129/73; PULSE 90; RESP 20; TEMP 36.7; O2SAT 92
--- NOTE | 2020-01-01 17:22 | PT.IPTN ---
Physical Therapy Treatment Note M2 PT-IP Current Condition Start: 12/31/19 12:40 Freq: NEEDED Status: Active Protocol: Document 12/31/19 14:43 AW (Rec: 12/31/19 15:33 AW [id number]) Physical Therapy Current Condition Current Condition Evaluation Date 12/31/19 Treatment Diagnosis subacute CVA; difficulty in walking Onset Date two weeks M3 PT-IP Subjective Start: 12/31/19 12:40 Freq: NEEDED Status: Active Protocol: Document 01/01/20 16:49 AW (Rec: 01/01/20 17:02 AW [email or web address]) Subjective Physical Therapy Visit Type Type Treatment Note Visit Start Time 16:30 Visit Stop Time 16:48 Total Visit Minutes 18 Notes MRI head was negative for acute process. Hospitalist is planning to repeat MRI in the AM. Number of LINING FELLER BLINDSTITCH Visits 0 Physical Therapy Visit Comments Patient Comments Pt is willing to participate with PT Therapy Pain Assessment Pain When Pain Assessed During Mobility Pain Present Pain Present Pain Reported Location back Scale Used not quantified Pain Management Techniques Distraction,Re-positioning M4 PT-IP Mobility and Gait Start: 12/31/19 12:40 Freq: NEEDED Status: Active Protocol: Document 01/01/20 16:49 DE (Rec: 01/01/20 17:22 DE [id number]) PT-Bed Mobility Assessment Supine to Sit Supine to Sit Independent PT-Transfer Assessment Sit to and From Stand Sit to and from Stand Independent,Use of Upper Extremities Equipment Transfer Assistive Device Straight Cane Orthotic/Prosthetic Devices or Brace: No Transfer Ability Level of Assist Independent Comments Mobility Comments Pt was lying supine in bed as PT and SPT arrived. Pt performed supine to sit at EOB to the L SBA with use of BUE. Pt performed sit to stand transfer SBA with use of SPC in the L hand while pushing off from the bed with the R hand. After the gait training, pt performed stand to sit at EOB SBA with use of SPC. Pt scored 23 sec on 5TSTS with use of cane in the L hand and RUE pushing off from the bed. Bed alarm was activated and call light was placed within reach. Gait Assessment Gait Gait Assistance Required: Standby Assistance Distance (Feet) 450 Able to Maintain Weight Bearing Status Yes During Gait Assistive Devices Assistive Device None,Gait Belt,Straight Cane Orthotic/Prosthetic Devices or Brace: No Gait Deviations General Gait Pattern Antalgic,Decreased Stride Length,Flexed Trunk,Step-to Gait,Wide Based Gait Factors Limiting Gait Function Factors Limiting Gait Function Decreased Sensation,Decreased Strength,Pain,Poor Balance, Respiratory Distress Comments Gait Comments Pt amb 450 ft with SBA and use of SPC in the L hand. Pt demonstrated 2 point-gait- pattern with decreased WB time on LLE, decreased stride length, and wide-based gait. Pt scored 8/12 on 4-item DGI. Pt demonstrated mild instability during head turns and lack of ability to modify gait speed. Stair Climbing Assessment Evaluation Level of Assist On Stairs Independent Devices Stair Climbing Assistive Devices Straight Cane,Right Railing Technique/Endurance Stair Climbing Direction Ascend and Descend Stair Climbing Technique Step to Step Number of Steps Climbed 3 Stair Climbing Set # Repetitions (reps) 1 Comments Stair Climbing Comments Pt ascended and descended 3 steps of stairs SBA with use of L SPC and R railing. PT-Balance Assessment Standing Balance and Reactions Static Standing Balance Ability Fair Dynamic Standing Balance Ability Fair Functional Assessments Functional Tests 5 Times Sit to Stand 23 Dynamic Gait Index 4-item DGI: 8/12 M5 PT-IP Objective Assessments Start: 12/31/19 12:40 Freq: NEEDED Status: Active Protocol: Document 12/31/19 14:43 AW (Rec: 12/31/19 15:33 AW [id number]) Orientation Orientation/Cognition Level of Alertness Alert Orientation Name,Day of Week,Place, Situation Language Function Ability Garbled Speech Safety Awareness Decreased Safety Awareness Memory Description Short Term Impaired Comments Pt's speech varied from intelligible to garbled. Pt is aware when speech is slurred. Gross Range of Motion Upper Extremity ROM Assessment Within Functional Limits Lower Extremity ROM Assessment Within Functional Limits Strength Upper Extremity Strength Assessment Left Impaired Shoulder 3+/5 Elbow 4-/5 Hand 3+/5 Lower Extremity Strength Assessment Left Impaired Hip 3-/5 Knee 3+/5 Ankle 4-/5 Comments Strength Comments RUE and RLE grossly 4+/5 Coordination Assessment Gross Coordination Gross Coordination Impaired Assessment Finger to Nose Test Moderate Impairment Pronation/Supination Test Moderate Impairment Foot Tapping Test Moderate Impairment Coordination Comments RUE and RLE coordination WNL. Left side impaired Sensation Assessment Sensation Gross Sensation Left UE Impaired,Left LE Impaired Light Touch Impaired Proprioception (Position) Impaired Sensation Description Numbness,Tingling Muscle Tone Muscle Tone WNL Yes Comments Muscle Tone Comments Negative ankle clonus bilaterally Other Assessments Other Other Assessments Occulomotor and vestibular exam grossly normal. Pt reports double or triple vision in left eye. M6 PT-IP Treatment Start: 12/31/19 12:40 Freq: NEEDED Status: Active Protocol: Document 01/01/20 16:49 AW (Rec: 01/01/20 17:02 AW [email or web address]) Physical Therapy Treatment Other Treatments Other Treatment Performed Coordination exercises including foot tapping ( alternating and non- alternating) on 6 step. Balance activities including NBOS with EO and EC, tandem walking with SPC requiring CGA . M7 PT-IP Assessment and Plan Start: 12/31/19 12:40 Freq: NEEDED Status: Active Protocol: Document 01/01/20 16:49 AW (Rec: 01/01/20 17:02 AW [email or web address]) PT Summary Assessment and Plan Potential Rehabilitation Potential Fair Status of Condition at Evaluation Stable Summary Impairments Pain,Strength,Balance, Coordination,Sensation, Cognition,Bed Mobility, Transfers,Gait,Activity Tolerance Progress Towards Goals Progressing Toward Goals Assessment Summary Jack shows improvement in shoulder AROM, coordination, and gait independence today. He is able to complete finger to nose testing with left side missing targets <1 cm. Heel- núñez testing is essentially normal. Pt scored 8/12 on 4- item DGI with single points deducted in all categories. 5 Time Sit to Stand was completed in 23 seconds with use of SPC. These scores indicate increased risk of falls and highlight the need for skilled therapy to counter the risks of declining mobility. PT anticipates pt will be safe to discharge home with outpatient PT to address strength, coordination, balance, and gait deficits. Goals Bed Mobility Goal Independent Transfer Goal Independent,Cane Gait Goal Independent,Cane Gait Distance 300 Other Goals - up/down 5 steps with unilateral rail and SPC IND Days to Meet Goals 5 Frequency of Treatment Frequency Of Treatment Once a Day Treatment Plan Physical Therapy Treatment Plan Bed Mobility Training,Transfer Training,Gait Training, Therapeutic Exercise,Balance Retraining,Discharge Planning, Neuromuscular Re-ed, Coordination Retraining Other Recommendations and Next Treatment gait training with SPC; Focus coordination training; caregiver training with SO if available Recommendations To Nursing Amount of Assist Needed Standby Assistance,1 Person Assist Discharge Recommendations PT Discharge Recommendations Home with Assistance, Outpatient PT Other Discharge Recommendations Pt prefers home and is not likely to be home bound. Transportation Needs at Discharge Private Vehicle
--- NOTE | 2020-01-01 18:23 | P.PN_ITS ---
Subjective Subjective Date Patient Seen: 01/01/20 Interval history: Patient reports left-sided weakness of his arm and leg has improved. He was able to ambulate to the bathroom without difficulty. He does report occasional neck pain which is happen prior to coming to the hospital. He has no slurred speech. Left facial droop appears to be the same. Exam Vital Signs (past 8 hours): - 01/01/20 13:30 01/01/20 16:30 Temperature 98.1 F 98.0 F Pulse Rate 100 H 90 Respiratory Rate 18 20 Blood Pressure 131/88 129/73 Pulse Oximetry 93 92 Oxygen Delivery Method Room Air Oxygen Flow Rate 0 Narrative Exam Narrative: Lungs clear to auscultation Cardiac exam: Regular rate rhythm normal S1 S Abdomen: Soft and nontender In IH SS stroke score 1 Objective Labs Result Diagrams: 12/30/19 17:52 12/31/19 05:15 Assessment & Plan Assessment & Plan narrative: Assessment & Plan narrative: CVA, subacute, present on admission, active. -MRI negative for acute stroke -patient clinically appears to have history -reported history of paroxysmal atrial fibrillation is concerning for an embolic event -however given negative MRI will treat with aspirin -will continue PT and OT -arrange for ZIO patch as an outpatient -continue statin -given negative head MRI for stroke will obtain an MRI of his cervical spine to evaluate the etiology of his left-sided weakness 2. Paroxysmal atrial fibrillation, in sinus rhythm chronic, stable -history of atrial fibrillation in sinus rhythm without ectopy block, ST or T-wave changes. All previous 12 lead EKGs on record showed normal sinus rhythm. -will start aspirin, discontinue anticoagulation, arrange for a ZIO patch as an outpatient 3. Hypertension, chronic, stable -blood pressure 147/91 on admission continuing at 142/90. -initiate lisinopril for risk factor modification given stroke 4. Asthma, chronic, stable -patient without wheezing or complaints of shortness of breath continue albuterol sulfate MDI 2 puffs every 4 hours as needed. 5. COPD, chronic, stable -Continue 2 entropion bromide Handy haler 1 cap daily 6. History traumatic brain injury -depression and bipolar disorder -patient presently cooperative and behaviorally stable. -continue home psychotropic medications including amitriptyline 100 mg daily duloxetine 60 mg daily, olanzapine 5 mg twice daily. Given nicotine dependence, will addiction treatment counselor to quit and start nicotine patch. Quality VTE Deep Vein Thrombosis/Pulmonary Embolism Present on Admission: No
[2020-01-01 20:15] VITALS: BP 131/93; PULSE 89; RESP 18; TEMP 36.9
[2020-01-01] MEDS: AMITRIPTYLINE 25 MG TABLET 100 MG PO (22:01)
[2020-01-01] MEDS: ATORVASTATIN 20 MG TABLET PO (22:02)
[2020-01-02 00:10] VITALS: BP 144/99; PULSE 91; RESP 18; TEMP 36.7; O2SAT 92
--- NOTE | 2020-01-02 03:33 | PC.NURSE ---
Pt resting comfortably this shift. No c/o of pain. NIH 4 due to L leg drift, L UE and LE decreased sensation and slight L sided facial droop.
[2020-01-02 05:00] VITALS: BP 138/94; PULSE 83; RESP 18; TEMP 36.7; O2SAT 92
[2020-01-02 08:18] VITALS: BP 138/91; PULSE 89; RESP 16; TEMP 36.8; O2SAT 89
[2020-01-02] MEDS: TIOTROPIUM BROMIDE 18 MCG INHALER INH (08:31)
[2020-01-02] MEDS: ALBUTEROL HFA 200 PUFF/18 GM INH (COVID POS/VENT PTS) INH (08:31)
[2020-01-02 08:32] VITALS: PULSE 83; RESP 20; O2SAT 94
[2020-01-02] MEDS: DIVALPROEX ER 250 MG TAB 1500 MG PO (08:35)
[2020-01-02] MEDS: ASPIRIN EC 81 MG TABLET PO (08:35)
[2020-01-02] MEDS: DULOXETINE 30 MG CAPSULE 60 MG PO (08:35)
[2020-01-02] MEDS: lisinopriL 10 MG TABLET PO (08:37)
[2020-01-02] MEDS: SODIUM CHLORIDE 0.9% FLUSH 10 ML IV (08:37)
[2020-01-02] MEDS: TAMSULOSIN 0.4 MG CAPSULE 0.8 MG PO (08:37)
[2020-01-02] MEDS: NICOTINE 21 MG PATCH TOP (08:37)
[2020-01-02] MEDS: OLANZapine 2.5 MG TABLET 5 MG PO (08:37)
--- NOTE | 2020-01-02 09:35 | OT.IP.TRT ---
Occupational Therapy Treatment Note M2 OT-IP Current Condition Start: 01/01/20 10:09 Freq: Status: Active Protocol: Document 01/01/20 10:09 [facility] (Rec: 01/01/20 10:47 [facility] [id number]) Occupational Therapy Current Condition Current Condition Evaluation Date 01/01/20 Treatment Diagnosis L UE/LE wweakness, subacute CVA Diagnosis Onset Date 12/30/19 M3 OT- IP Subjective and Pain Start: 01/01/20 10:09 Freq: Status: Active Protocol: Document 01/02/20 09:53 [facility] (Rec: 01/02/20 10:01 [facility] [id number]) OT- Subjective Occupational Therapy Visit Type Type Treatment Note Visit Start Time 09:18 Visit Stop Time 09:35 Total Visit Minutes 17 Occupational Therapy Visit Comments Patient Comments Pt agreed to work with OT. Pt states the PVC frame which OT gave to pt to work on his AROM /stretching for LUE has helped. Patient/Caregiver Goals TO go home. OT Pain Assessment Pain When Pain Assessed At Rest Pain Present Pain Present Denied Pain M5 OT- IP IADL's Start: 01/01/20 10:09 Freq: Status: Active Protocol: Document 01/01/20 10:09 [facility] (Rec: 01/01/20 10:47 [facility] [id number]) OT-Instrumental Activities of Daily Living Home Safety Awareness Ability to Problem Solve Emergency Able to Problem Solve Situations Medication Management Medication Management No Deficits Identified Meal Preparation Meal Preparation Comments Pt states girl friend to assist as needed. Charge Lpn Charge Lpn Comments Pt states girl friend to assist as needed. M7 OT- IP Mobility and Balance Start: 01/01/20 10:09 Freq: Status: Active Protocol: Document 01/02/20 09:53 [facility] (Rec: 01/02/20 10:01 [facility] [id number]) OT- Bed Mobility Assessment Supine to Sit Supine to Sit Assist Standby Assistance Sit to Supine Sit to Supine Assist Standby Assistance OT-Transfer Assessment Sit to and From Stand Sit to and from Stand Standby Assistance Devices Transfer Assistive Devices Gait Belt,Straight Cane Comments Mobility Comments SBA with SPC in the room with good safety. OT- Balance Assessment Sitting Balance and Reactions Static Sitting Balance Ability Normal Dynamic Sitting Balance Ability Good Standing Balance and Reactions Static Standing Balance Ability Fair M8 OT- IP Objective Assessments Start: 01/01/20 10:09 Freq: Status: Active Protocol: Document 01/02/20 09:53 [facility] (Rec: 01/02/20 10:01 [facility] [id number]) OT Gross Range of Motion Upper Extremity Range of Motion Assessment Within Functional Limits OT Strength Comments Strength Comments LUE 4-/5 shoulder, elbow 4/5, hand 4-/5 much improved from yesterday. OT- Coordination Assessment Comments Coordination Comments Pt 9 hole peg test improved 6 seconds with left hand today. Pt states now able to use cell phone with his left hand today . Overall much improved and pt states has been working on FMS activities OT has suggested for pt to work on. Pt given a list of activities to help continue to improve FMS for left hand. Vision Also noted improvement for pt to scan items to the left today and deficit for left peripheral vision is less today then yesterday. Pt able to move his eyes better to the left for left eye. M9 OT- IP Assessment and Plan Start: 01/01/20 10:09 Freq: Status: Active Protocol: Document 01/02/20 09:53 [facility] (Rec: 01/02/20 10:01 [facility] [id number]) OT Summary Assessment and Plan Potential Rehabilitation Potential Excellent Analytic Complexity at Evaluation Low Summary OT Impairments Strength,Functional Mobility, Dressing,Toileting,Bathing, Toilet Transfers,Shower Transfers Progress Towards Goals Progressing Toward Goals Assessment Summary Pt's had MRI cervial spine this morning which results stated spinal degenerative changes at C5-6, and C6-7. Overall pt's LUE strength and coordination have improve much since yesterday. Pt has good understanding and safety for all OT activities for FMS and stretching for LUE. Pt looking to go home today. Goals Self-Feeding Goal Independent Grooming Goal Independent Dressing Goal Independent Toileting Goal Independent Bathing Goal Independent Toilet Transfer Goal Independent Shower Transfer Goal Independent Days to Meet Goals 1 Frequency of Treatment Frequency Of Treatment Once a Day Treatment Plan OT Treatment Plan Patient/Family Education, Discharge Planning Discharge Recommendations OT Discharge Recommendations Home with Assistance, Outpatient PT Transportation Needs at Discharge Private Vehicle
--- NOTE | 2020-01-02 11:02 | PT.IPTN ---
Physical Therapy Treatment Note M2 PT-IP Current Condition Start: 12/31/19 12:40 Freq: NEEDED Status: Active Protocol: Document 12/31/19 14:43 AW (Rec: 12/31/19 15:33 AW [id number]) Physical Therapy Current Condition Current Condition Evaluation Date 12/31/19 Treatment Diagnosis subacute CVA; difficulty in walking Onset Date two weeks M3 PT-IP Subjective Start: 12/31/19 12:40 Freq: NEEDED Status: Active Protocol: Document 01/02/20 10:45 [facility] (Rec: 01/02/20 12:23 [facility] [id number]) Subjective Physical Therapy Visit Type Type Treatment Note Visit Start Time 10:45 Visit Stop Time 11:02 Total Visit Minutes 17 Number of SHRIMP CLEANER Visits 1 Physical Therapy Visit Comments Patient Comments Pt is willing to participate with PT Therapy Pain Assessment Pain When Pain Assessed During Mobility Pain Present Pain Present Pain Reported Location back Scale Used not quantified M4 PT-IP Mobility and Gait Start: 12/31/19 12:40 Freq: NEEDED Status: Active Protocol: Document 01/02/20 10:45 [facility] (Rec: 01/02/20 12:23 [facility] [id number]) PT-Bed Mobility Assessment Supine to Sit Supine to Sit Independent PT-Transfer Assessment Sit to and From Stand Sit to and from Stand Independent,Use of Upper Extremities Equipment Transfer Assistive Device Bed Rail,Straight Cane Orthotic/Prosthetic Devices or Brace: No Transfers Transfer Destination Bed Transfer Ability Level of Assist Independent Comments Mobility Comments Pt in bed and able to get to EOB independently, pt then stood with SPC in left hand SBA. Pt ambulated SBA in champion to therapy stairs, climbed two sets of three steps with bilateral hand rails SBA. Pt is able to ambulate with SPC using step thru gait pattern and proper sequencing during gait with cane. Pt returned to room and performed balance NBS EO/EC, tandem walk with SPC, tandem stance EO/EC. Pt left sitting on EOB with all needs within reach. Gait Assessment Gait Gait Assistance Required: Standby Assistance Distance (Feet) 400 Able to Maintain Weight Bearing Status Yes During Gait Assistive Devices Assistive Device Gait Belt,Straight Cane Orthotic/Prosthetic Devices or Brace: No Gait Deviations General Gait Pattern Antalgic,Decreased Stride Length,Flexed Trunk,Step-to Gait,Wide Based Gait Factors Limiting Gait Function Factors Limiting Gait Function Decreased Sensation,Decreased Strength,Pain,Poor Balance, Respiratory Distress Comments Gait Comments See mobility comments for details. Stair Climbing Assessment Evaluation Level of Assist On Stairs Standby Assistance Devices Stair Climbing Assistive Devices Left Railing,Right Railing Technique/Endurance Stair Climbing Direction Ascend and Descend Stair Climbing Technique Step to Step Number of Steps Climbed 3 Stair Climbing Set # Repetitions (reps) 2 Comments Stair Climbing Comments Pt ascended and descended 3 steps x2 using bilateral rails SBA. PT-Balance Assessment Standing Balance and Reactions Static Standing Balance Ability Fair Dynamic Standing Balance Ability Fair M5 PT-IP Objective Assessments Start: 12/31/19 12:40 Freq: NEEDED Status: Active Protocol: Document 12/31/19 14:43 AW (Rec: 12/31/19 15:33 AW [id number]) Orientation Orientation/Cognition Level of Alertness Alert Orientation Name,Day of Week,Place, Situation Language Function Ability Garbled Speech Safety Awareness Decreased Safety Awareness Memory Description Short Term Impaired Comments Pt's speech varied from intelligible to garbled. Pt is aware when speech is slurred. Gross Range of Motion Upper Extremity ROM Assessment Within Functional Limits Lower Extremity ROM Assessment Within Functional Limits Strength Upper Extremity Strength Assessment Left Impaired Shoulder 3+/5 Elbow 4-/5 Hand 3+/5 Lower Extremity Strength Assessment Left Impaired Hip 3-/5 Knee 3+/5 Ankle 4-/5 Comments Strength Comments RUE and RLE grossly 4+/5 Coordination Assessment Gross Coordination Gross Coordination Impaired Assessment Finger to Nose Test Moderate Impairment Pronation/Supination Test Moderate Impairment Foot Tapping Test Moderate Impairment Coordination Comments RUE and RLE coordination WNL. Left side impaired Sensation Assessment Sensation Gross Sensation Left UE Impaired,Left LE Impaired Light Touch Impaired Proprioception (Position) Impaired Sensation Description Numbness,Tingling Muscle Tone Muscle Tone WNL Yes Comments Muscle Tone Comments Negative ankle clonus bilaterally Other Assessments Other Other Assessments Occulomotor and vestibular exam grossly normal. Pt reports double or triple vision in left eye. M6 PT-IP Treatment Start: 12/31/19 12:40 Freq: NEEDED Status: Active Protocol: Document 01/01/20 16:49 AW (Rec: 01/01/20 17:02 AW [email or web address]) Physical Therapy Treatment Other Treatments Other Treatment Performed Coordination exercises including foot tapping ( alternating and non- alternating) on 6 step. Balance activities including NBOS with EO and EC, tandem walking with SPC requiring CGA . M7 PT-IP Assessment and Plan Start: 12/31/19 12:40 Freq: NEEDED Status: Active Protocol: Document 01/02/20 10:45 [facility] (Rec: 01/02/20 12:23 [facility] [id number]) PT Summary Assessment and Plan Summary Impairments Pain,Strength,Balance, Coordination,Sensation, Cognition,Bed Mobility, Transfers,Gait,Activity Tolerance Assessment Summary Pt is independent for bed mobility and sit<>stand, pt requires SBA for ambulation with SPC and stair climbing. Pt states he feels he is at his baseline. Goals Bed Mobility Goal Independent Transfer Goal Independent,Cane Gait Goal Independent,Cane Gait Distance 300 Other Goals - up/down 5 steps with unilateral rail and SPC IND Days to Meet Goals 5 Frequency of Treatment Frequency Of Treatment Once a Day Treatment Plan Physical Therapy Treatment Plan Bed Mobility Training,Transfer Training,Gait Training, Therapeutic Exercise,Balance Retraining,Discharge Planning, Neuromuscular Re-ed, Coordination Retraining Recommendations To Nursing Amount of Assist Needed Standby Assistance,1 Person Assist Discharge Recommendations PT Discharge Recommendations Home with Assistance, Outpatient PT Other Discharge Recommendations Pt prefers home and is not likely to be home bound. Transportation Needs at Discharge Private Vehicle
[2020-01-02 11:26] VITALS: BP 131/89; PULSE 95; RESP 16; TEMP 36.8; O2SAT 92
--- NOTE | 2020-01-02 12:38 | DI.MRI.S_ITS ---
PROCEDURE: MR CERVICAL SPINE WO/W CON INDICATIONS: evaluate cervical spine TECHNIQUE: Noncontrast sagittal T1 spin echo and T2 fast spin echo, sagittal STIR, foraminal oblique sagittal T2 fast spin echo, axial gradient echo or T2 fast spin echo through the cervical spine. After the administration of contrast, axial and sagittal T1 spin echo with fat saturation through the cervical spine. COMPARISON: [facility], CR, XR CERVICAL SPINE 2 OR 3 VIEWS, 05/11/2017, 14:14. [facility], CT, C-SPINE WITHOUT CONTRAST, 07/15/2010, 0:23. [facility], CT, C-SPINE W/O CONTRAST, 10/08/2012, 17:47. FINDINGS: Image quality: This examination is limited by involuntary motion artifact. Alignment and curvature: There is reversal of the normal cervical lordosis, with the apex at the C5 level. There is minimal anterolisthesis seen at C4-C5, with minimal retrolisthesis seen at C5-C6 and C6-C7. Minimal anterolisthesis is seen at C7-T1. Marrow: Marrow is normal in overall signal, without suspicious enhancement. Spinal cord: Visualized spinal cord has normal size and signal. No cerebellar tonsillar herniation. No abnormal intramedullary enhancement. Paraspinous soft tissues: No paravertebral masses or suspicious enhancement. C2-3: The disc height is well-preserved. Loss of disc signal is seen at this level. Moderate disc osteophyte complex is seen, which is eccentric to the right. Moderate facet hypertrophy is seen, right worse than left. There is moderate to severe bilateral neural foraminal narrowing seen, right worse than left. Mild to moderate central canal narrowing is seen. Minimal ventral cord flattening can be seen. C3-4: Moderate loss of disc height is seen. Loss of disc signal is seen. Bridging endplate osteophytes are seen. Moderate generalized disc osteophyte complex is seen. At least moderate facet hypertrophy can be seen, right more prominent than left. Moderate to severe bilateral neural foraminal narrowing is seen. Moderate to severe central canal narrowing is seen. There is associated mass effect upon the ventral spinal cord. C4-5: Moderate to severe loss of disc height and disc signal can be seen. Bridging endplate osteophytes are seen. Moderate prominent disc osteophyte complex is seen. Uncovertebral joint hypertrophy is seen at this level. There is mild to moderate right-sided and moderate left-sided facet hypertrophy seen. There is moderate to severe bilateral neural foraminal narrowing seen, left worse than right. Moderate to severe central canal narrowing is seen. There is associated mass effect upon the ventral spinal cord. C5-6: At least moderate loss of disc height and disc signal can be seen. Prominent disc osteophyte complex is seen, with a central disc osteophyte protrusion present. Uncovertebral joint hypertrophy is seen at this level. Bridging endplate osteophytes are seen. There is moderate right-sided and [id number] left-sided facet hypertrophy seen. Moderate to severe bilateral neural foraminal narrowing can be seen. Moderate to severe central canal narrowing is seen, with associated ventral cord flattening, as on series 5, image 28. C6-7: At least moderate loss of disc height and disc signal can be seen. Moderate prominent disc osteophyte complex is seen. Uncovertebral joint hypertrophy is seen at this level. Bridging endplate osteophytes are seen. Mild endplate enhancement can be seen, which is attributed to degenerative change. Mild to moderate bilateral facet hypertrophy is seen. Moderate to severe bilateral neural foraminal narrowing can be seen. Moderate to severe central canal narrowing is seen, with associated ventral cord flattening, as on series 5, image 32. C7-T1: Moderate loss of disc height is seen. Loss of disc signal is seen. Moderate generalized disc osteophyte complex is seen. Prominent facet hypertrophy is seen. There is moderate to severe bilateral neural foraminal narrowing seen, left worse than right. Moderate to severe central canal narrowing is seen. There is associated mass effect upon the ventral spinal cord. IMPRESSION: Multiple levels of prominent cervical spine degenerative change can be seen, which are overall worst at the C5-C6 and C6-C7 levels. Dictated by: Reed Wynn M.D. on 01/02/2020 at 8:40 Approved by: Reed Wynn M.D. on 01/02/2020 at 8:47
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
--- NOTE | 2020-01-02 12:53 | PC.NURSE ---
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
--- NOTE | 2020-01-02 13:19 | SLP.IPNOTE ---
Attempted to see pt for [employer]OR tx. Pt was with Nsg reviewing dc plan. Will f/u again prior to dc as able.
--- NOTE | 2020-01-02 13:29 | CM.DPC ---
DCP/continued: Reviewed chart. Patient with order to d/c home today. Met with patient this afternoon to confirm plan. Patient currently I in ADL's and agreeable to return home. Patient reports that his significant other is picking him up. Received call from Harper at [facility]. She does community outreach and left inquiring about patient. [employer] notified patient and provided him with Harper's phone number. Patient active at [facility] and knows Harper. In addition, left vm with Harper requesting that she call patient on his cell phone to schedule outpatient follow up appointment. P: Home today. LU Becker
== END 2020-01-02 14:00 | disposition home or self-care (01) ==
LOC: ED 18:30 → AC 19:04
PROVIDERS: Nurse Practitioner Adult Health; Admitting Provider Internal Medicine; Emergency Provider Emergency Medicine; Family Provider Family Medicine; PCP Family Medicine; Referring Provider Emergency Medicine; Visit Provider Internal Medicine
DX: M48.02 Spinal stenosis, cervical region (principal); R29.818 Other symptoms and signs involving the nervous system; R53.1 Weakness; H53.9 Unspecified visual disturbance; R20.0 Anesthesia of skin; R47.9 Unspecified speech disturbances; E78.5 Hyperlipidemia, unspecified; I10 Essential (primary) hypertension; J44.9 Chronic obstructive pulmonary disease, unspecified; F15.11 Other stimulant abuse, in remission; I48.0 Paroxysmal atrial fibrillation; Z11.59 Encounter for screening for other viral diseases
CPT/HCPCS: 36415; 70450; 70548; 70553; 72156; 80048; 80053; 80061; 82550; 83036; 83735; 84443; 84484; 85025; 87635; 90471; 90656; 92523; 93005; 93306; 94640; 94760; 94762; 96360; 96361; 96372; 97116; 97162; 97165; 97530; 99284; 99285; G0378; A9270; J1650; Q2038

== ENCOUNTER 2020-03-02 16:50 | Emergency (ER) | payer OTHER, MEDICAID, SELFPAY ==
[2020-03-02] VITALS (17 sets, daily range): BP systolic 100–132; BP diastolic 60–81; PULSE 101–110; RESP 18–36; TEMP 37.1–37.3; O2SAT 86–98; BMI 25.8
--- NOTE | 2020-03-02 17:08 | DI.RAD.S_ITS ---
PROCEDURE: XR CHEST 1V INDICATIONS: chest pain TECHNIQUE: One view of the chest was acquired. COMPARISON: [facility], , XR CHEST 1V, 05/11/2019, 17:00. [facility], , CHEST 1 VIEW, 07/15/2010, 1:03. FINDINGS: Surgical changes and devices: None. Lungs and pleura: Mild bilateral airspace opacity with a basilar predominance. Blunting of the left costophrenic angle which may be due to trace effusion. No pneumothorax. Mediastinum: Mediastinal contours appear unchanged. Heart size is within normal limits. Bones and chest wall: No suspicious bony lesions. Overlying soft tissues appear unremarkable. IMPRESSION: Mild bilateral airspace opacity within the basilar predominance. Findings could be due to multifocal pneumonia versus is atelectasis. Suspect trace left pleural effusion. Dictated by: Cornelio Browning M.D. on 03/02/2020 at 16:37 Approved by: Cornelio Browning M.D. on 03/02/2020 at 16:40
--- NOTE | 2020-03-02 18:02 | PC.NURSE ---
1755: Pt at 86% o2 sat on RA. Pt aroused with sternal rub and told to take deep breath. Pt placed back on 3L NC per JORGE Rose. RN Melida aware and vitals charted. Pt now at 95% with RR 20.
--- NOTE | 2020-03-02 18:15 | PC.NURSE ---
Pt arrived via [facility]. EMS states per family pt found on floor sleeping multiple times and this time decided to call EMS for pt being increasingly weak, SOB, and c/o CP. developed mild cough today. H/o substance use, asthma, and COPD requiring 2-3L O2. Drowsy on arrival and slurring speech requiring sternal rub to stay awake. 88% RA and placed on 3L with improvement to 93%. BS 150. Pt was given ASA 324mg and NTG 0.4mg SL x 2 in ambulance. afebrile 97.6. HR 104. Swabbed for COVID on arrival. placed on bus driver/monitor, 18G IV in place. Dr Vazquez in room for assessment. RN chest pain protocol orders placed and verbal to add ABG and BNP by Dr Vazquez.
[2020-03-02 18:19] LABS: Add Manual Diff / Slide Review NO; Basophils Absolute Auto 0 /uL (0-100); Basophils Percent Auto 0.1 % (0-2); Eosinophils Absolute Auto 0 /uL (0-450); Hematocrit 40.2 % (41-53); Hemoglobin 13.3 g/dL (13.5-17.5); Lymphocytes Absolute Auto 300 /uL (1100-4500); Lymphocytes Percent Auto 3.1 % (25-40); Mean Corpuscular Hemoglobin 31.4 PG (26-34); Monocytes Absolute Auto 1100 /uL (0-900); Monocytes Percent Auto 9.8 % (3-14); Neutrophils Absolute Auto 9800 /uL (1500-7000); Platelet Count 216 X10^3/uL (150-400); Red Blood Cell Count 4.23 X10^6/uL (4.5-5.9); Red Cell Distribution Width 14.9 % (11.6-14.8); White Blood Cell Count 11.2 X10^3/uL (4.5-11.0)
--- NOTE | 2020-03-02 18:28 | ED_ITS ---
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 Esterase Negative (NEGATIVE) Urine RBC None seen (0-5/HPF) Urine WBC None seen (0-5/HPF) Urine Bacteria None seen (None) Ur Culture Indicated? Cult not indicated U Opiates 300ng/mL cut Negative (Negative) Ur Oxycodone Screen Negative (Negative) Urine Methadone Screen Negative (Negative) Ur Barbiturates Screen Negative (Negative) U Tricyclic Antidepress Positive H (Negative) Ur Phencyclidine Scrn Negative (Negative) Ur Amphetamines Screen Positive H (Negative) U Methamphetamines Scrn Positive H (Negative) Ur MDMA Scrn (Ecstasy) Negative (Negative) U Benzodiazepines Scrn Negative (Negative) Urine Cocaine Screen Negative (Negative) U Marijuana (THC) Screen Positive H (Negative) Ethyl Alcohol ( - 10) mg/dL COVID-19 PCR (Negative) 03/03/20 03/03/20 03/03/20 Range/Units 00:05 00:05 00:50 WBC (4.5-11.0) X10^3/uL RBC (4.5-5.9) X10^6/uL Hgb (13.5-17.5) g/dL Hct (41-53) % MCV (80-100) fL MCH (26-34) PG MCHC (30-36) % RDW (11.6-14.8) % Plt Count (150-400) X10^3/uL Neut % (Auto) (50-75) % Lymph % (Auto) (25-40) % Grand % (Auto) (3-14) % Eos % (Auto) (2-4) % Baso % (Auto) (0-2) % Neut # (Auto) (5430-0425) /uL Lymph # (Auto) (1307-0720) /uL Grand # (Auto) (0-900) /uL Eos # (Auto) (0-450) /uL Baso # (Auto) (0-100) /uL PT (10.1-12.7) SECONDS INR (0.9-1.3) APTT (26.4-36.2) SECONDS ABG pH (7.35-7.45) ABG pCO2 (35-45) mmHg ABG pO2 (80-100) mmHg ABG HCO3 (22-26) mmol/L ABG Total CO2 (21-31) mmol/L ABG O2 Saturation (95-100) % ABG Base Excess (-2-2) mmol/L FiO2 Sodium (137-145) mmol/L Potassium (3.4-5.1) mmol/L Chloride (98-107) mmol/L Carbon Dioxide (22-32) mmol/L BUN (9-20) mg/dL Creatinine (0.66-1.25) mg/dL Estimated GFR (>60) mL/min BUN/Creatinine Ratio (6-22) Glucose (80-110) mg/dL Lactate 0.8 (0.7-2.1) mmol/L Calcium (8.4-10.2) mg/dL Total Bilirubin (0.2-1.3) mg/dL AST (17-59) IU/L ALT (<50) IU/L Alkaline Phosphatase (38-126) U/L Total Creatine Kinase (55-170) U/L CK-MB (CK-2) (<2.37) ng/mL CK-MB (CK-2) Rel Index (1.5-5.0) % Troponin I < 0.012 (0.01-0.034) ng/mL NT-Pro-B Natriuret Pep (<125) pg/mL Total Protein (6.3-8.2) g/dL Albumin (3.5-5.0) g/dL Globulin (1.7-4.1) g/dL Albumin/Globulin Ratio (1.0-2.8) Lipase (23-300) U/L Procalcitonin 3.83 H (<0.5) ng/mL Urine Color Urine Appearance Urine pH (4.5-8.0) Ur Specific [place] (1.000-1.035) Urine Protein (Negative) Urine Glucose (UA) (Negative) g/dL Urine Ketones (NEGATIVE) Urine Occult Blood (Negative) Urine Nitrate (Negative) Urine Bilirubin (NEGATIVE) Urine Urobilinogen (0.2) E.U./dL Ur Leukocyte Esterase (NEGATIVE) Urine RBC (0-5/HPF) Urine WBC (0-5/HPF) Urine Bacteria (None) Ur Culture Indicated? U Opiates 300ng/mL cut (Negative) Ur Oxycodone Screen (Negative) Urine Methadone Screen (Negative) Ur Barbiturates Screen (Negative) U Tricyclic Antidepress (Negative) Ur Phencyclidine Scrn (Negative) Ur Amphetamines Screen (Negative) U Methamphetamines Scrn (Negative) Ur MDMA Scrn (Ecstasy) (Negative) U Benzodiazepines Scrn (Negative) Urine Cocaine Screen (Negative) U Marijuana (THC) Screen (Negative) Ethyl Alcohol ( - 10) mg/dL COVID-19 PCR (Negative) Imaging Data Chest x-ray: Radiologist's Impression: [address] [id number] ReportSigned Patient: Aris TorresMR#: [id number]: [id number]:[id number]/Sex: 64 / MDate of Service: 03/02/20Loc: EDAccession Number: [id number] Procedure: XR chest 1V Ordering Provider: Lizzette Mann MD PROCEDURE: XR CHEST 1V INDICATIONS: chest pain TECHNIQUE: One view of the chest was acquired. COMPARISON: [facility], XR CHEST 1V, 05/11/2019, 17:00. [facility], CHEST 1 VIEW, 07/15/2010, 1:03. FINDINGS: Surgical changes and devices: None. Lungs and pleura: Mild bilateral airspace opacity with a basilar predominance. Blunting of the left costophrenic angle which may be due to trace effusion. No pneumo thorax. Mediastinum: Mediastinal contours appear unchanged. Heart size is within normal limits. Bones and chest wall: No suspicious bony lesions. Overlying soft tissues appear unremarkable. IMPRESSION: Mild bilateral airspace opacity within the basilar predominance. Findings could be due to multifocal pneumonia versus is atelectasis. Suspect trace left pleural effusion. Dictated by: Cornelio Browning M.D. on 03/02/2020 at 16:37 Approved by: Cornelio Browning M.D. on 03/02/2020 at 16:40 CT scan - head: Radiologist's Impression: [address] [id number] Scan ReportSigned Patient: Aris TorresMR#: [id number]: 8Acct:[id number]/Sex: 64 / MDate of Service: 03/02/20Loc: EDAccession Number: [id number] Procedure: CT head/brain wo con Ordering Provider: Senthil Vazquez MD PROCEDURE: CT HEAD/BRAIN WO CON INDICATIONS: ams TECHNIQUE: Noncontrast 4.5 mm thick angled axial sections acquired from the foramen magnum to the vertex, with coronal and sagittal reformats. For radiation dose reduction, the following was used: automated exposure control, adjustment of mA and/or kV according to patient size. COMPARISON: [facility], CT, CT HEAD/BRAIN WO CON, 12/30/2019, 18:00. FINDINGS: Image quality: Excellent. CSF spaces: Basal cisterns are patent. No extra-axial fluid collections. The ventricles are symmetric in size and shape. Brain: No intracranial bleeds or masses. There is cerebral volume loss for age, with resultant ventricular and sulcal prominence. There are periventricular and deep white matter chronic small vessel ischemic changes. There is intracranial internal carotid artery atherosclerosis. Skull and face: Calvarium and visualized facial bones appear intact, without suspicious lesions. Sinuses: Visualized sinuses and mastoids are clear. IMPRESSION: No acute intracranial process. Dictated by: Estevan Russo M.D. on 03/02/2020 at 19:37 Approved by: Estevan Russo M.D. on 03/02/2020 at 19:38 CT - cervical spine: Radiologist's Impression: [address] [id number] Scan ReportSigned Patient: Aris TorresMR#: [id number]: 8Acct:[id number]/Sex: 64 / MDate of Service: 03/02/20Loc: EDAccession Number: [id number] Procedure: CT cervical spine wo con Ordering Provider: Senthil Vazquez MD PROCEDURE: CT CERVICAL SPINE WO CON INDICATIONS: fall/ams TECHNIQUE: Noncontrast 3 mm thick sections acquired from the skull base to the T4 level. Sagittal and coronal reformats were then constructed. For radiation dose reduction, the following was used: automated exposure control, adjustment of mA and/or kV according to patient size. COMPARISON: [facility], CT, CT HEAD/BRAIN WO CON, 03/02/2020, 19:03. FINDINGS: Image quality: Severely degraded by motion artifact. Bones: Age-indeterminate fracture of the left coronoid process of the mandible. Visualized superior ribs are intact. Multilevel cervical spondylosis and facet arthropathy. Reversal of the normal cervical lordosis. Soft tissues: Prevertebral soft tissues are normal in thickness. No paravertebral hematomas. No apical pneumothoraces. IMPRESSION: Fracture of the left coronoid process of the mandible although this may be subacute or chronic. Please correlate clinically Elsewhere, no definite fracture although exam severely limited by motion artifact and advanced discogenic changes. Dictated by: Estevan Russo M.D. on 03/02/2020 at 19:38 Approved by: Estevan Russo M.D. on 03/02/2020 at 19:43 CT facial bones: Radiologist's Impression: [address] [id number] Scan ReportSigned Patient: Aris TorresMR#: [id number]: 8Acct:[id number]/Sex: 64 / MDate of Service: 03/02/20Loc: EDAccession Number: [id number] Procedure: CT facial bones wo con Ordering Provider: Senthil Vazquez MD PROCEDURE: CT FACIAL BONES WO CON INDICATIONS: fall/injury TECHNIQUE: Noncontrast 2.5 mm thick axial images acquired from the mandible through the frontal sinuses, with coronal and sagittal reformatting. For radiation dose reduction, the following was used: automated exposure control, adjustment of mA and/or kV according to patient size. COMPARISON: None. FINDINGS: Image quality: Degraded by motion artifact. Bones and teeth: Fracture of the left coronoid process of the mandible although CT appearance suggests possible subacute or chronic age. Severe cervical spondylosis and facet arthropathy. Sinuses: Paranasal sinuses are aerated, without fluid levels, mucosal thickening, or mucoceles. Mastoid air cells are aerated. Soft tissues: No edema, masses, or fluid collections. No enlarged lymph nodes. No soft tissue lacerations or debris. Vascular: Visualized vascular structures appear normal in the absence of contrast. Bony vascular foramina and canals are intact. IMPRESSION: Fracture of the left coronoid process of the mandible although this may be subacute or chronic. Please correlate clinically to determine acuity Motion degraded examination. Dictated by: Estevan Russo M.D. on 03/02/2020 at 20:59 Transcribed by: DIANA on 03/02/2020 at 22:51 Approved by: Estevan Russo M.D. on 03/02/2020 at 21:06 CT angiogram chest: Radiologist's Impression: No pulmonary embolism. Right greater than left dependent patchy ill-defined consolidation most likely atelectasis and pneumon ia. ECG Data Attestation: I personally reviewed and interpreted this ECG as follows: Interpretation: Sinus tachycardia rate 108. Left anterior fascicular block. No ST elevation or depression, repeat EKG at 12:09 a.m.. Sinus tachycardia rate 103. Left axis deviation. No ST elevation or depression. MDM Narrative Medical decision making narrative: Patient ABG noted. Likely respiratory acidosis. Patient may have history of sleep apnea. Has substance abuse history. Patient is not altered at this time. Is very somnolent but awakes and answers appropriately. Awoke patient to get catheterization for urine he states he refuses and he states will be able to urinate on his own. Patient did improve with 0.2 mg of Narcan. At this time protecting his own airway. No BiPAP or rapid sequence intubation indicated. Appropriate for transfer as we do not have cardiology services here. We do not have oral maxillofacial surgery as well for mandibular fracture finding. Patient and girlfriend understand indication for transfer Discharge Plan Departure Patient Disposition: [facility] Clinical Impression: Acute dyspnea Chest pain Qualifiers: Chest pain type: unspecified Qualified Code(s): R07.9 - Chest pain, unspecified Closed fracture of coronoid process of mandible Qualifiers: Encounter type: initial encounter Laterality: left Qualified Code(s): S02.632A - Fracture of coronoid process of left mandible, initial encounter for closed fracture Syncope Qualifiers: Syncope type: unspecified Qualified Code(s): R55 - Syncope and collapse Community acquired pneumonia Qualifiers: Laterality: right Lung location: lower lobe of lung Qualified Code(s): J18.9 - Pneumonia, unspecified organism Prescriptions: No Action tamsulosin [Flomax] 0.4 MG capsule,extended release 24hr 0.8 mg PO DAILY Qty: 0 RF: 0 albuterol sulfate [Proventil HFA] 90 mcg/actuation HFA aerosol inhaler 2 puff INHALATION Q4H PRN (Reason: Shortness Of Breath) RF: 0 olanzapine [Zyprexa] 10 mg tablet 5 mg PO BID RF: 0 tacrolimus 0.1 % ointment 1 applictn TOP BID RF: 0 amitriptyline 100 mg tablet 100 mg PO BEDTIME RF: 0 aspirin [Aspir-Low] 81 mg Tablet,Delayed Release (Dr/Ec) 81 mg PO DAILY RF: 0 albuterol sulfate 2.5 mg /3 mL (0.083 %) solution for nebulization 2.5 mg inhalation Q4H PRN (Reason: Shortness Of Breath) RF: 0 urea 40 % cream 1 applic TOPICAL DIRECTED RF: 0 divalproex 500 mg tablet extended release 24 hr 1,500 mg PO BID RF: 0 omeprazole 20 mg capsule,delayed release(DR/EC) 20 mg PO DAILY PRN (Reason: Acid Reflux) RF: 0 Spiriva with HandiHaler 18 mcg capsule, w/inhalation device 1 cap INHALATION DAILY RF: 0 duloxetine 60 mg capsule,delayed release(DR/EC) 60 mg PO DAILY RF: 0 Humira(CF) Pen 40 mg/0.4 mL pen injector kit See Rx Instructions .ROUTE .COMPLEX RF: 0 naproxen sodium [Aleve] 220 mg Capsule 440 mg PO BID RF: 0 lisinopril 10 mg Tablet 10 mg PO DAILY Qty: 30 RF: 0 Referrals: Kailee Dominguez MD [Primary Care Provider] -
[2020-03-02] MEDS: NALOXONE 0.4 MG/ML VIAL 0.2 MG IV (18:36)
[2020-03-02 18:48] LABS: HCO3 ABG 26 mmol/L (22-26); PCO2 ABG 54.1 mmHg (35-45); PO2 ABG 86 mmHg (80-100); TCO2 ABG 27 mmol/L (21-31); pH ABG 7.29 (7.35-7.45)
--- NOTE | 2020-03-02 18:48 | PC.NURSE ---
Pt given 0.2mg IV narcan with minimal effect. SPO2 noted to increase from 90% on 3L to 96% on 3L. Dr Vazquez made aware. no new orders at this time. Pt protecting his airway, HR remains 104. responsive to firm tactile stimuli.
[2020-03-02 18:49] LABS: Fractionated Inspired Oxygen 32; Oxygen Saturation ABG 95 % (95-100)
[2020-03-02 18:52] LABS: Alanine Aminotransferase 22 IU/L (<50); Albumin 3.4 g/dL (3.5-5.0); Albumin Globulin Ratio 1.3 (1.0-2.8); Alkaline Phosphatase 57 U/L (38-126); Aspartate Aminotransferase 26 IU/L (17-59); BUN Creatinine Ratio 32.4 (6-22); Bilirubin Total 0.3 mg/dL (0.2-1.3); Blood Urea Nitrogen 36 mg/dL (9-20); Calcium 8.9 mg/dL (8.4-10.2); Carbon Dioxide 27 mmol/L (22-32); Chloride 103 mmol/L (98-107); Creatine Kinase 382 U/L (55-170); Estimated Glomerular Filt Rate > 60.0 mL/min (>60); Globulin 2.7 g/dL (1.7-4.1); Glucose 139 mg/dL (80-110); HEMOLYSIS < 15 (0-50); Lipase 18 U/L (23-300); Potassium 3.8 mmol/L (3.4-5.1); Sodium 135 mmol/L (137-145); Total Protein 6.1 g/dL (6.3-8.2)
[2020-03-02 18:53] LABS: Ethanol (ETOH) < 10 mg/dL
[2020-03-02 19:02] LABS: COVID19 -Nasal RAPID Negative (Negative)
[2020-03-02 19:03] LABS: Troponin I < 0.012 ng/mL (0.01-0.034)
[2020-03-02 19:07] LABS: CKMB % Relative Index 1.9 % (1.5-5.0); Creatine Kinase MB 7.28 ng/mL (<2.37)
--- NOTE | 2020-03-02 19:11 | PC.NURSE ---
Pt refusing straight catheter. alert to light touch at this time. states he occasionally does street drugs and i did a line of meth 4 days ago and slept all day today
[2020-03-02 19:39] LABS: Prothrombin Time 11.6 SECONDS (10.1-12.7)
[2020-03-02 19:41] LABS: PTT Partial Thromboplastin Tim 32 SECONDS (26.4-36.2)
[2020-03-02 19:45] LABS: Bacteria Urine None Seen; RBC Urine None Seen (0-5/HPF); WBC Urine None Seen (0-5/HPF)
[2020-03-02] MEDS: SODIUM CHLORIDE 0.9% 1,000 ML 1000 ML IV (19:45)
[2020-03-02 19:47] LABS: NT-proBNP (BNP-Adult 18+) 386 pg/mL (<125)
[2020-03-02 19:58] LABS: Appearance Urine UA CLEAR; Bilirubin Urine UA NEGATIVE (NEGATIVE); Color Urine UA YELLOW; Glucose Urine UA NEGATIVE (Negative); Ketones Urine UA TRACE (NEGATIVE); Leukocyte Esterase Urine UA NEGATIVE (NEGATIVE); Nitrite Urine UA NEGATIVE (Negative); Occult Blood Urine UA NEGATIVE (Negative); Protein Urine UA TRACE (Negative); Urobilinogen Urine UA 0.2 E.U./dL (0.2)
[2020-03-02 20:11] LABS: Culture Indicated Urine Cult Not Indicated
[2020-03-02 20:12] LABS: UR Morphine/Opiate cutoff 300 Negative (Negative); Ur Creatinine Normal (Normal); Ur Specific Gravity Normal (Normal); Urine Amphetamines Positive (Negative); Urine Barbiturates Negative (Negative); Urine Benzodiazepines Negative (Negative); Urine Cocaine Negative (Negative); Urine MDMA Negative (Negative); Urine Methadone Negative (Negative); Urine Methamphetamines Positive (Negative); Urine Oxycodone Negative (Negative); Urine Phencyclidine Negative (Negative); Urine Tetrahydrocannabinol Positive (Negative); Urine Tricyclic Antidepressant Positive (Negative); Urine pH Normal (Normal)
--- NOTE | 2020-03-02 20:33 | DI.CT.S_ITS ---
PROCEDURE: CT FACIAL BONES WO CON INDICATIONS: fall/injury TECHNIQUE: Noncontrast 2.5 mm thick axial images acquired from the mandible through the frontal sinuses, with coronal and sagittal reformatting. For radiation dose reduction, the following was used: automated exposure control, adjustment of mA and/or kV according to patient size. COMPARISON: None. FINDINGS: Image quality: Degraded by motion artifact. Bones and teeth: Fracture of the left coronoid process of the mandible although CT appearance suggests possible subacute or chronic age. Severe cervical spondylosis and facet arthropathy. Sinuses: Paranasal sinuses are aerated, without fluid levels, mucosal thickening, or mucoceles. Mastoid air cells are aerated. Soft tissues: No edema, masses, or fluid collections. No enlarged lymph nodes. No soft tissue lacerations or debris. Vascular: Visualized vascular structures appear normal in the absence of contrast. Bony vascular foramina and canals are intact. IMPRESSION: Fracture of the left coronoid process of the mandible although this may be subacute or chronic. Please correlate clinically to determine acuity Motion degraded examination. Dictated by: Estevan Russo M.D. on 03/02/2020 at 20:59 Transcribed by: DIANA on 03/02/2020 at 22:51 Approved by: Estevan Russo M.D. on 03/02/2020 at 21:06
[2020-03-02] MEDS: SODIUM CHLORIDE 0.9% 2,190 ML 730 ML IV (21:09)
--- NOTE | 2020-03-02 23:30 | DI.CT.S_ITS ---
PROCEDURE: CT ANGIO CHEST PE PROTOCOL INDICATIONS: dyspnea TECHNIQUE: After the administration of intravenous contrast, 2 mm thick sections acquired from the pulmonary apices to the posterior costophrenic angles. 3-dimensional maximum intensity projection (MIP) coronal and sagittal reformats were then acquired through the thorax. For radiation dose reduction, the following was used: automated exposure control, adjustment of mA and/or kV according to patient size. COMPARISON: None. FINDINGS: Image quality: Excellent. Pulmonary arteries: Pulmonary arteries are normal in size, and demonstrate no intraluminal filling defects to suggest central pulmonary embolism. However enhancement of pulmonary arteries is inadequate (118 Hounsfield units in the main pulmonary artery), with severe respiratory motion artifact. Close follow-up and appropriate inphase imaging with better attempt at breath hold recommendation as clinically indicated. Lungs and pleura: Centrilobular emphysema. Right greater than left dependent patchy ill-defined consolidation, ground-glass attenuation, and thickened inter station most likely related to atelectasis and pneumonia. Other underlying pathologic processes include edema, infarct, hemorrhage, and malignancy cannot be excluded. Clinical correlation and follow-up to resolution is recommended. Lungs are clear. No pleural effusions or pneumothorax. Central and peripheral airways are patent. Mediastinum: Heart size is normal, with a minimal pericardial effusion measuring 2 millimeters. No mediastinal or hilar adenopathy. Thoracic aorta is normal in caliber and enhancement. The thoracic aorta has atherosclerosis. Esophagus is normal in caliber, without hiatal hernia. Bones and chest wall: No suspicious bony lesions. Ribs and thoracic spine appear intact throughout. Thyroid gland is normal. No axillary or supraclavicular adenopathy. Abdomen: Visualized upper abdominal solid organs appear normal in the early arterial phase of enhancement. A 1.5 centimeter partially imaged right adrenal gland nodule is probably an adenoma. The liver demonstrates hepatic steatosis. There is a small hiatal hernia. IMPRESSION: 1. No gross central pulmonary embolism, however there is inadequate enhancement. See above. 2. Right greater than left patchy ill-defined consolidation, ground-glass attenuation, and thickened interstitium most likely related to atelectasis and pneumonia. Clinical correlation and follow-up resolution is recommended. Comment: Final report is concordant with preliminary interpretation by [facility] Dictated by: Jarred Kuhn M.D. on 03/03/2020 at 8:10 Approved by: Jarred Kuhn M.D. on 03/03/2020 at 8:14
[2020-03-03] VITALS (8 sets, daily range): BP systolic 110–135; BP diastolic 68–83; PULSE 100–111; RESP 20–30; O2SAT 91–98
[2020-03-03] MEDS: ALBUTEROL/IPRATROPIUM 3 ML AMPUL INH ×2 (00:15→03:47)
[2020-03-03 00:33] LABS: Troponin I < 0.012 ng/mL (0.01-0.034)
[2020-03-03] MEDS: CEFTRIAXONE 1 GM/50 ML FROZ.PIGGY IV (01:03)
[2020-03-03 01:13] LABS: Lactate (Lactic Acid) 0.8 mmol/L (0.7-2.1)
[2020-03-03] MEDS: AZITHROMYCIN 500 MG in DEXTROSE 5% IN WATER 250 ML IV (01:33)
[2020-03-03 01:54] LABS: Procalcitonin 3.83 ng/mL (<0.5)
== END 2020-03-03 03:50 | disposition short-term general hospital (02) ==
PROVIDERS: Emergency Medicine; Emergency Provider Emergency Medicine; Family Provider Family Medicine; PCP Family Medicine
DX: J18.9 Pneumonia, unspecified organism (principal); S02.632A Fracture of coronoid process of left mandible, initial encounter for closed fracture; R07.9 Chest pain, unspecified; R55 Syncope and collapse; R05 Cough; S09.90XA Unspecified injury of head, initial encounter; W19.XXXA Unspecified fall, initial encounter; R06.00 Dyspnea, unspecified; J44.9 Chronic obstructive pulmonary disease, unspecified; Z79.82 Long term (current) use of aspirin; I48.0 Paroxysmal atrial fibrillation; I10 Essential (primary) hypertension; F31.9 Bipolar disorder, unspecified; R20.0 Anesthesia of skin; Z86.73 Personal history of transient ischemic attack (TIA), and cerebral infarction without residual deficits
CPT/HCPCS: 36415; 36600; 70450; 70486; 71045; 71275; 72125; 80053; 80305; 80320; 81001; 82550; 82553; 82805; 83605; 83690; 83880; 84145; 84484; 85025; 85610; 85730; 87040; 87635; 93005; 94640; J2310; Q9967

== ENCOUNTER 2020-03-03 13:28 | Inpatient (IN) | payer MEDICAID, OTHER, SELFPAY ==
[2020-03-03 15:55] VITALS: BP 153/88; PULSE 108; RESP 22; TEMP 37.1; O2SAT 91
[2020-03-03 16:04] VITALS: BMI 26.2
[2020-03-03 16:55] LABS: Add Manual Diff / Slide Review NO; Basophils Absolute Auto 100 /uL (0-100); Basophils Percent Auto 0.3 % (0-2); Eosinophils Absolute Auto 0 /uL (0-450); Eosinophils Percent Auto 0.1 % (2-4); Hematocrit 38.7 % (41-53); Hemoglobin 12.7 g/dL (13.5-17.5); Lymphocytes Absolute Auto 900 /uL (1100-4500); Mean Corpuscular HGB Conc 32.8 % (30-36); Mean Corpuscular Hemoglobin 31.3 PG (26-34); Mean Corpuscular Volume 95.5 fL (80-100); Monocytes Absolute Auto 1300 /uL (0-900); Monocytes Percent Auto 5.9 % (3-14); Neutrophils Absolute Auto 19800 /uL (1500-7000); Neutrophils Percent Auto 89.7 % (50-75); Platelet Count 211 X10^3/uL (150-400); Red Blood Cell Count 4.06 X10^6/uL (4.5-5.9); Red Cell Distribution Width 14.8 % (11.6-14.8); White Blood Cell Count 22.1 X10^3/uL (4.5-11.0)
[2020-03-03 16:58] LABS: INR 1.2 (0.9-1.3)
[2020-03-03 17:09] LABS: Alanine Aminotransferase 21 IU/L (<50); Albumin 3.1 g/dL (3.5-5.0); Albumin Globulin Ratio 1.1 (1.0-2.8); Alkaline Phosphatase 63 U/L (38-126); Aspartate Aminotransferase 24 IU/L (17-59); BUN Creatinine Ratio 33.3 (6-22); Bilirubin Total 0.3 mg/dL (0.2-1.3); Blood Urea Nitrogen 19 mg/dL (9-20); Calcium 8.5 mg/dL (8.4-10.2); Carbon Dioxide 30 mmol/L (22-32); Chloride 108 mmol/L (98-107); Estimated Glomerular Filt Rate > 60.0 mL/min (>60); Globulin 2.8 g/dL (1.7-4.1); Glucose 97 mg/dL (80-110); HEMOLYSIS < 15 (0-50); Potassium 4.1 mmol/L (3.4-5.1); Sodium 139 mmol/L (137-145); Total Protein 5.9 g/dL (6.3-8.2)
[2020-03-03 17:11] LABS: Hemoglobin A1C% w Est Avg Glu 5.7 % (4.0-6.0)
[2020-03-03 17:34] LABS: Procalcitonin 1.16 ng/mL (<0.5)
[2020-03-03 17:42] LABS: TSH w/ Reflex to FT4 0.09 uIU/mL (0.47-4.68)
[2020-03-03 17:53] LABS: COVID19 -Nasal RAPID Negative (Negative)
[2020-03-03 17:55] LABS: Magnesium 2.2 mg/dL (1.6-2.3)
[2020-03-03 18:08] LABS: Free T4, Direct Thyroxine 1.18 ng/dL (0.78-2.19)
[2020-03-03] MEDS: PIPERACILLIN-TAZO 3.375 GM/50 ML FROZ.PIGGY IV (18:19)
[2020-03-03] MEDS: SODIUM CHLORIDE 0.9% 1,000 ML 100 ML IV (18:34)
[2020-03-03 20:00] VITALS: BP 133/87; PULSE 100; RESP 18; TEMP 36.6; O2SAT 92
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
[2020-03-03] MEDS: GABAPENTIN 300 MG CAPSULE PO (21:18)
[2020-03-03] MEDS: OLANZapine 2.5 MG TABLET 5 MG PO (21:18)
[2020-03-03] MEDS: DIVALPROEX ER 250 MG TAB 1000 MG PO (21:26)
[2020-03-03] MEDS: AMITRIPTYLINE 25 MG TABLET 100 MG PO (21:26)
[2020-03-04] VITALS (19 sets, daily range): BP systolic 123–155; BP diastolic 67–115; PULSE 81–127; RESP 14–30; TEMP 36.1–37.6; O2SAT 90–98
[2020-03-04] MEDS: PIPERACILLIN-TAZO 3.375 GM/50 ML FROZ.PIGGY IV ×5 (00:14→23:35)
--- NOTE | 2020-03-04 00:36 | PC.NURSE ---
Pt. very difficult to aroused & resp. rate 32. SPO2 with 3 liters of oxygen 94-93 percent, turned 02 down to 2 liters & sat. 93%. CHELSEY Russo notified ordered stat ABG. RT in the room to do stat ABG. Also checked his glucose & it was 103. Will cont. to monitor.
[2020-03-04 00:49] LABS: HCO3 ABG 27 mmol/L (22-26); PCO2 ABG 52.2 mmHg (35-45); PO2 ABG 61 mmHg (80-100); TCO2 ABG 29 mmol/L (21-31); pH ABG 7.32 (7.35-7.45)
[2020-03-04 00:50] LABS: Fractionated Inspired Oxygen 28; Oxygen Saturation ABG 88 % (95-100)
[2020-03-04 04:55] LABS: Add Manual Diff / Slide Review NO; Basophils Absolute Auto 300 /uL (0-100); Basophils Percent Auto 1.3 % (0-2); Eosinophils Absolute Auto 0 /uL (0-450); Eosinophils Percent Auto 0.1 % (2-4); Hematocrit 36.8 % (41-53); Hemoglobin 12.1 g/dL (13.5-17.5); Lymphocytes Absolute Auto 800 /uL (1100-4500); Lymphocytes Percent Auto 3.3 % (25-40); Mean Corpuscular HGB Conc 32.9 % (30-36); Mean Corpuscular Hemoglobin 31.4 PG (26-34); Mean Corpuscular Volume 95.4 fL (80-100); Monocytes Absolute Auto 1600 /uL (0-900); Monocytes Percent Auto 6.8 % (3-14); Neutrophils Absolute Auto 20700 /uL (1500-7000); Neutrophils Percent Auto 88.5 % (50-75); Platelet Count 193 X10^3/uL (150-400); Red Blood Cell Count 3.86 X10^6/uL (4.5-5.9); Red Cell Distribution Width 14.9 % (11.6-14.8); White Blood Cell Count 23.4 X10^3/uL (4.5-11.0)
[2020-03-04 05:20] LABS: BUN Creatinine Ratio 28.6 (6-22); Blood Urea Nitrogen 16 mg/dL (9-20); Calcium 8.7 mg/dL (8.4-10.2); Carbon Dioxide 31 mmol/L (22-32); Chloride 107 mmol/L (98-107); Estimated Glomerular Filt Rate > 60.0 mL/min (>60); Glucose 111 mg/dL (80-110); HEMOLYSIS < 15 (0-50); Magnesium 2.1 mg/dL (1.6-2.3); Sodium 139 mmol/L (137-145)
[2020-03-04 05:32] LABS: Alanine Aminotransferase 18 IU/L (<50); Albumin 2.9 g/dL (3.5-5.0); Albumin Globulin Ratio 1.2 (1.0-2.8); Alkaline Phosphatase 76 U/L (38-126); Aspartate Aminotransferase 19 IU/L (17-59); Bilirubin Total 0.3 mg/dL (0.2-1.3); Bilirubin Unconjugated 0.2 mg/dL (0.0-1.1); Globulin 2.5 g/dL (1.7-4.1); HEMOLYSIS < 15 (0-50); Total Protein 5.4 g/dL (6.3-8.2)
[2020-03-04] MEDS: SODIUM CHLORIDE 0.9% 1,000 ML 100 ML IV ×2 (05:43→16:33)
[2020-03-04 06:10] LABS: Procalcitonin 0.77 ng/mL (<0.5)
[2020-03-04] MEDS: TIOTROPIUM BROMIDE 18 MCG INHALER INH (09:07)
[2020-03-04] MEDS: ENOXAPARIN 40 MG/0.4 ML SYRINGE SUBCUT (09:22)
[2020-03-04] MEDS: SODIUM CHLORIDE 0.9% FLUSH 10 ML IV ×2 (09:23→20:57)
[2020-03-04] MEDS: KETOROLAC 30 MG/ML VIAL IV (09:23)
[2020-03-04] MEDS: OLANZapine 2.5 MG TABLET 5 MG PO ×2 (09:23→20:55)
[2020-03-04] MEDS: TAMSULOSIN 0.4 MG CAPSULE 0.8 MG PO (09:25)
[2020-03-04] MEDS: ACETAMINOPHEN 325 MG TABLET 650 MG PO (09:25)
[2020-03-04] MEDS: DULOXETINE 30 MG CAPSULE 60 MG PO (09:26)
[2020-03-04] MEDS: lisinopriL 10 MG TABLET PO (09:26)
[2020-03-04] MEDS: GABAPENTIN 300 MG CAPSULE PO ×2 (09:26→20:55)
[2020-03-04] MEDS: ASPIRIN EC 81 MG TABLET PO (09:26)
[2020-03-04] MEDS: DIVALPROEX ER 250 MG TAB 1000 MG PO ×2 (09:27→20:55)
[2020-03-04] MEDS: PANTOPRAZOLE 20 MG TABLET PO (09:27)
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
[2020-03-04 15:38] LABS: NT-proBNP (BNP-Adult 18+) 627 pg/mL (<125)
[2020-03-04 15:43] LABS: Adenovirus Not Detected (Not Detect); Bordetella pertussis Not Detected (Not Detect); Chlamydophila pneumoniae Not Detected (Not Detect); Coronavirus 229E Not Detected (Not Detect); Coronavirus HKU1 Not Detected (Not Detect); Coronavirus NL 63 Not Detected (Not Detect); Coronavirus OC43 Not Detected (Not Detect); Human Metapneumovirus Not Detected (Not Detect); Human Rhinovirus/Enterovirus Not Detected (Not Detect); Influenza A Not Detected (Not Detect); Influenza B Not Detected (Not Detect); Mycoplasma pneumoniae Not Detected (Not Detect); Parainfluenza Virus 1 Not Detected (Not Detect); Parainfluenza Virus 2 Not Detected (Not Detect); Parainfluenza Virus 3 Not Detected (Not Detect); Parainfluenza Virus 4 Not Detected (Not Detect); Respiratory Syncytial Virus Not Detected (Not Detect); SARS- CoV-2 Not Detected (Not Detecte)
[2020-03-04 19:59] LABS: Bilirubin Urine UA 1+ (NEGATIVE); Color Urine UA YELLOW; Glucose Urine UA NEGATIVE (Negative); Ketones Urine UA 2+ (NEGATIVE); Leukocyte Esterase Urine UA NEGATIVE (NEGATIVE); Nitrite Urine UA NEGATIVE (Negative); Occult Blood Urine UA 3+ (Negative); Protein Urine UA 1+ (Negative); Specific Gravity Urine UA 1.015 (1.000-1.035); Urobilinogen Urine UA 0.2 E.U./dL (0.2); pH Urine UA 5.5 (4.5-8.0)
[2020-03-04 20:05] LABS: Appearance Urine UA CLEAR
[2020-03-04 20:08] LABS: Amorphous Sediment Urine 1+; Ictotest Urine Negative (Negative); RBC Urine 5-10/HPF (0-5/HPF); Squamous Epithelial Cell Urine 1-5 /HPF (0-5/HPF); WBC Urine 1-5/HPF (0-5/HPF)
[2020-03-04 20:09] LABS: Bacteria Urine Occasional (0-1); Culture Indicated Urine Cult Not Indicated
[2020-03-04] MEDS: ROSUVASTATIN 10 MG TABLET 20 MG PO (20:55)
[2020-03-04] MEDS: AMITRIPTYLINE 25 MG TABLET 100 MG PO (20:55)
[2020-03-04] MEDS: ALBUTEROL HFA MDI 60 PUFF/8 GM INHALER INH (21:06)
[2020-03-05] VITALS (10 sets, daily range): BP systolic 137–159; BP diastolic 78–95; PULSE 99–109; RESP 18–27; TEMP 36.7–37.3; O2SAT 92–95
[2020-03-05] MEDS: ACETAMINOPHEN 325 MG TABLET 650 MG PO (02:00)
[2020-03-05 02:10] LABS: pH ABG 7.38 (7.35-7.45)
[2020-03-05 02:11] LABS: Fractionated Inspired Oxygen 28; HCO3 ABG 28 mmol/L (22-26); Oxygen Saturation ABG 92 % (95-100); PCO2 ABG 47.7 mmHg (35-45); PO2 ABG 66 mmHg (80-100); TCO2 ABG 30 mmol/L (21-31)
[2020-03-05 04:58] LABS: Add Manual Diff / Slide Review NO; Basophils Absolute Auto 100 /uL (0-100); Basophils Percent Auto 0.4 % (0-2); Eosinophils Absolute Auto 0 /uL (0-450); Eosinophils Percent Auto 0.2 % (2-4); Hematocrit 36.5 % (41-53); Lymphocytes Absolute Auto 900 /uL (1100-4500); Lymphocytes Percent Auto 4.4 % (25-40); Mean Corpuscular HGB Conc 32.8 % (30-36); Mean Corpuscular Hemoglobin 31.2 PG (26-34); Mean Corpuscular Volume 94.9 fL (80-100); Monocytes Absolute Auto 1100 /uL (0-900); Monocytes Percent Auto 5.5 % (3-14); Neutrophils Absolute Auto 18500 /uL (1500-7000); Neutrophils Percent Auto 89.5 % (50-75); Platelet Count 204 X10^3/uL (150-400); Red Blood Cell Count 3.85 X10^6/uL (4.5-5.9); Red Cell Distribution Width 14.8 % (11.6-14.8); White Blood Cell Count 20.7 X10^3/uL (4.5-11.0)
[2020-03-05 05:16] LABS: BUN Creatinine Ratio 31.8 (6-22); Blood Urea Nitrogen 21 mg/dL (9-20); Calcium 8.6 mg/dL (8.4-10.2); Carbon Dioxide 30 mmol/L (22-32); Chloride 108 mmol/L (98-107); Estimated Glomerular Filt Rate > 60.0 mL/min (>60); Glucose 98 mg/dL (80-110); HEMOLYSIS < 15 (0-50); Magnesium 2.1 mg/dL (1.6-2.3); Potassium 4.1 mmol/L (3.4-5.1); Sodium 141 mmol/L (137-145)
[2020-03-05 05:17] LABS: NT-proBNP (BNP-Adult 18+) 606 pg/mL (<125)
[2020-03-05] MEDS: SODIUM CHLORIDE 0.9% FLUSH 10 ML IV ×2 (05:20→10:35)
[2020-03-05] MEDS: PIPERACILLIN-TAZO 3.375 GM/50 ML FROZ.PIGGY IV ×2 (05:20→11:16)
[2020-03-05 05:25] LABS: Procalcitonin 0.43 ng/mL (<0.5)
[2020-03-05] MEDS: TIOTROPIUM BROMIDE 18 MCG INHALER INH (08:00)
[2020-03-05] MEDS: ALBUTEROL HFA MDI 60 PUFF/8 GM INHALER INH (08:01)
--- NOTE | 2020-03-05 09:54 | PT.IIE ---
Current Diagnoses Pneumonia, unspecified organism (03/03/20) Surgical History (Last Reviewed 03/04/20 @ 13:06 by Clarence Muir DO) History of back surgery (~2007) Hx of abdominal surgery Hx of appendectomy Hx of cholecystectomy Hx of hernia repair Medical History (Last Reviewed 03/04/20 @ 13:06 by Clarence Muir DO) Anxiety Arthritis Asthma Bipolar disorder BPH (benign prostatic hyperplasia) COPD (chronic obstructive pulmonary disease) Current every day smoker Depression GERD (gastroesophageal reflux disease) History of atrial fibrillation HTN (hypertension) Hx of appendicitis Methamphetamine abuse Psoriasis Traumatic brain injury Physical Therapy Inpatient Evaluation/Re-Eval M1 PT/OT-IP Prior Functional Status Start: 03/05/20 11:14 Freq: NEEDED Status: Active Protocol: Document 03/05/20 09:54 AB (Rec: 03/05/20 11:32 AB [id number]) Medical Review Prior Functional Status Medical History Reviewed Yes Communication able to make needs known Mobility and Gait pt stated that he is modified independent witha llmobilities and ambultion using SPC indoors and 4WW for outdoor ambulation Social History Household Members none Living Arrangements House Number of Floors (Floors) Two Floors Number of Stairs To Enter/Railing? no steps to enter 4 steps L rails to bedroom level Home Environment High Toilet Home Equipment Front Wheel Walker,Four Wheel Walker,Straight Cane,Tub Transfer Bench,Hand Held Shower,Grab Bars Near Toilet, Grab Bars In Shower Additional Social History Comment pt stated that his girlfriend will assist him and if she is not around, his 19 y/o son will assist him has an adjustable bed M2 PT-IP Current Condition Start: 03/05/20 11:14 Freq: NEEDED Status: Active Protocol: Document 03/05/20 09:54 AB (Rec: 03/05/20 11:32 AB [id number]) Physical Therapy Current Condition Current Condition Evaluation Date 03/05/20 Treatment Diagnosis PNA; difficulty in walking Onset Date 03/03/20 Precautions Other Precautions O2 sat M3 PT-IP Subjective Start: 03/05/20 11:14 Freq: NEEDED Status: Active Protocol: Document 03/05/20 09:54 AB (Rec: 03/05/20 11:32 AB [id number]) Subjective Physical Therapy Visit Type Type Initial Evaluation Visit Start Time 09:54 Visit Stop Time 10:16 Total Visit Minutes 22 Number of CIRCULATION REPRESENTATIVE Visits 0 Physical Therapy Visit Comments Patient Comments pt is agreeable to do PT Therapy Pain Assessment Pain When Pain Assessed At Rest Location Neck Intensity 6 Scale Used Numeric (0 - 10) Description Chronic Pain Management Techniques Distraction,Modification of Treatment,Re-positioning, Timing of Activity with Medications M4 PT-IP Mobility and Gait Start: 03/05/20 11:14 Freq: NEEDED Status: Active Protocol: Document 03/05/20 09:54 AB (Rec: 03/05/20 11:32 AB [id number]) PT-Bed Mobility Assessment Supine to Sit Supine to Sit Independent Sit to Supine Sit to Supine Independent PT-Transfer Assessment Sit to and From Stand Sit to and from Stand Contact Guard Assistance,1 Person Assistance,Use of Upper Extremities Equipment Transfer Assistive Device Gait Belt,Front Wheeled Walker Orthotic/Prosthetic Devices or Brace: No Transfers Transfer Destination Bed Transfer Technique Stand Step Pivot Transfer Ability Level of Assist Contact Guard Assistance,Use of Upper Extremities Comments Mobility Comments completed sit to stand from chair CGA. (+) body jerking with hands slipping off FWW but improved towards end of PT session. transferred to bed CGA using FWW. completed supine <>sit mod I. completed sit to stand from EOB SBA to CGA and ambulated in room ~ 50 ft using FWW SBA to CGA and cues. agreed to sit up on chair. Refused stair climbing training. positioned on chair. call light and table placed within reach. O2 sat at start of tx 94% ; decreased to ~ 88 % after ambulation. cued for deep breathing, O2 sat increased to 90% but went back down to 84% but up again at 94% after resting. chair alarm set up. Gait Assessment Gait Gait Assistance Required: Standby Assistance,Contact Guard Assist Distance (Feet) 50 Able to Maintain Weight Bearing Status Yes During Gait Assistive Devices Assistive Device Gait Belt,Front Wheeled Walker Orthotic/Prosthetic Devices or Brace: No Gait Deviations General Gait Pattern Antalgic,Decreased Stride Length,Decreased Feet Clearance,Step-to Gait Factors Limiting Gait Function Factors Limiting Gait Function Decreased Activity Tolerance, Decreased Strength,Pain,Poor Balance,Poor Safety Awareness, Respiratory Distress PT-Balance Assessment Sitting Balance and Reactions Static Sitting Balance Ability Good Dynamic Sitting Balance Ability Good Standing Balance and Reactions Static Standing Balance Ability Fair Dynamic Standing Balance Ability Fair Device Used FWW M5 PT-IP Objective Assessments Start: 03/05/20 11:14 Freq: NEEDED Status: Active Protocol: Document 03/05/20 09:54 AB (Rec: 03/05/20 11:32 AB [id number]) Orientation Orientation/Cognition Level of Alertness Alert Orientation Name,Place,Situation Safety Awareness Decreased Safety Awareness Gross Range of Motion Lower Extremity ROM Assessment Within Functional Limits Strength Comments Strength Comments LLE: 4+/5 RLE: 4-/5 M6 PT-IP Treatment Start: 03/05/20 11:14 Freq: NEEDED Status: Active Protocol: Document 03/05/20 09:54 AB (Rec: 03/05/20 11:32 AB [id number]) Physical Therapy Treatment Education Education Provided Safety M7 PT-IP Assessment and Plan Start: 03/05/20 11:14 Freq: NEEDED Status: Active Protocol: Document 03/05/20 09:54 AB (Rec: 03/05/20 11:32 AB [id number]) PT Summary Assessment and Plan Potential Rehabilitation Potential Good Status of Condition at Evaluation Evolving Summary Impairments Pain,ROM,Strength,Balance, Cognition,Bed Mobility, Transfers,Gait,Activity Tolerance Assessment Summary pt requiring SBA to CGA with mobility using FWW. O2 sat tends to decrease during mobility 84-88% with mobility. pt plans to go home and will have his girlfriend or son assist him. will continue to assess progress. pt has to complete stair climbing training prior to d/c home. pt will benefit from outpt PT Goals Transfer Goal Independent,Four Wheeled Walker Gait Goal Independent,Four Wheel Walker Gait Distance 200 Other Goals improve ambulation using SPC 200 ft SBA up/don 4 steps L rail ascending SBA Days to Meet Goals 5 Frequency of Treatment Frequency Of Treatment Once a Day Treatment Plan Physical Therapy Treatment Plan Bed Mobility Training,Transfer Training,Gait Training, Therapeutic Exercise,Balance Retraining,Discharge Planning, Neuromuscular Re-ed, Coordination Retraining Recommendations To Nursing Amount of Assist Needed 1 Person Assist Discharge Recommendations PT Discharge Recommendations Home with Assistance, Outpatient PT Transportation Needs at Discharge Private Vehicle
[2020-03-05] MEDS: ENOXAPARIN 40 MG/0.4 ML SYRINGE SUBCUT (10:35)
[2020-03-05] MEDS: PANTOPRAZOLE 20 MG TABLET PO (10:35)
[2020-03-05] MEDS: lisinopriL 10 MG TABLET 20 MG PO (10:36)
[2020-03-05] MEDS: OLANZapine 2.5 MG TABLET 5 MG PO (10:36)
[2020-03-05] MEDS: ASPIRIN EC 81 MG TABLET PO (10:36)
[2020-03-05] MEDS: TAMSULOSIN 0.4 MG CAPSULE 0.8 MG PO (10:36)
[2020-03-05] MEDS: DIVALPROEX ER 250 MG TAB 1000 MG PO (10:37)
[2020-03-05] MEDS: DULOXETINE 30 MG CAPSULE 60 MG PO (10:37)
[2020-03-05] MEDS: GABAPENTIN 300 MG CAPSULE PO (10:37)
--- NOTE | 2020-03-05 11:01 | CM.DPNOTE ---
Faxed H&P and FS, PN to [facility] per Renea for referral. Cindy Spencer CM Asst.
[2020-03-05] MEDS: SODIUM CHLORIDE 0.9% 250 ML 21 ML IV (11:05)
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
--- NOTE | 2020-03-05 14:32 | PC.NURSE ---
PT INTERMITTENTLY VERY SLEEPY/LETHARGIC AVOIDING STAFF BUT AT OTHER TIMES QUITE ALERT- HE DOES HAVE HX OF POLYSUBSTANCE ABUSE. REVIEWED D/C PLAN WITH BOTH PT AND FRIEND, Pricilla, PT WAXES AND WANES IN HIS ABILITY TO COMPREHEND AND/OR RESPOND- HOME HEALTH TO FOLLOW- D/C FROM HOSPITAL AT THIS TIME-
--- NOTE | 2020-03-05 14:37 | CM.DPC ---
DCP Cont: Sanna, patient's caregiver called. She had spoken to LU Awan, yesterday, and in the room, was left Senior Resources Guide, Guide to establish POA, as well as DSHS application. Informed her that information was in room, she did not see yesterday. She had questions regarding the DSHS application, where to send it. Let her know that information if on the form. Let her know that patient is discharging home today. She was initially unsure if she could pick him up due to car issues, and preceded to have Cindy, elder assistant, fax Medicaid transport. Sanna called back shortly after and stated, she could pick him up. Had Cindy cancel Medicaid transport. Also, went ahead and ordered [facility] for patient, for he could not remember having their services. Went ahead and had Dr. Muir sign face to face. [facility] is on the calendar for the week, and [facility] does not accept insurance. Went ahead and faxed over signed home health orders, H&P, DC summary, and completed face to face. Had Cindy call Celeste at [facility] to inform her that referral is being sent. Added nursing, P.T, O.T, and MANAGER [address]IG[address] for resources, since caregiver, Sanna, may need some help with DSHS application, as well as looking for resources. P: Patient is to discharge home today with [facility]. Staci Garsia, SY/Riveter
[2020-03-07 08:09] LABS: SARS CoV19 IgA Negative (Negative)
--- NOTE | 2020-03-07 12:59 | CM.DPNOTE ---
Post d/c note: AYDIN White received a call today from Sanna Olivarez, primary advocate for pt Aris Edwards. She was expressing concerns about the d/c process of 03/05 and wished to talk with someone. At Cindy's request followed up now. Sanna reports that pt did very poorly once he got home and that last night he was admitted to [facility] and placed on ventilator support after options were discussed with her. After brief EMR review acknowledged her distress and concerns and requested that she discuss this with CM Clerk Checker Neyda who is not in today but will be tomorrow. Neyda's contact info was provided. Sanna's contact #: [phone].
== END 2020-03-05 13:30 | disposition home health service (06) | DRG 193 ==
PROVIDERS: Internal Medicine; Nurse Practitioner Family; Admitting Provider Internal Medicine; Family Provider Family Medicine; PCP Family Medicine; Referring Provider Internal Medicine; Visit Provider Internal Medicine
DX: J18.9 Pneumonia, unspecified organism (principal); J96.01 Acute respiratory failure with hypoxia; J96.02 Acute respiratory failure with hypercapnia; J44.9 Chronic obstructive pulmonary disease, unspecified; J45.909 Unspecified asthma, uncomplicated; I48.0 Paroxysmal atrial fibrillation; J69.0 Pneumonitis due to inhalation of food and vomit; F31.9 Bipolar disorder, unspecified; Z87.820 Personal history of traumatic brain injury; F15.10 Other stimulant abuse, uncomplicated; I10 Essential (primary) hypertension; Z87.891 Personal history of nicotine dependence; N40.0 Benign prostatic hyperplasia without lower urinary tract symptoms; Z20.828 Contact with and (suspected) exposure to other viral communicable diseases
CPT/HCPCS: 36415; 36600; 70450; 70486; 71045; 71275; 72125; 80048; 80053; 80076; 80305; 80320; 81001; 82550; 82553; 82805; 83036; 83605; 83690; 83735; 83880; 84145; 84439; 84443; 84484; 85025; 85610; 85730; 86769; 87040; 87633; 87635; 93005; 93010; 94640; 94760; 94762; 97162; 99285; A9270; J1650; J1885; J2310; J2543; Q9967